=== PATIENT | female | born 1945 | race Caucasian/White ===

== ENCOUNTER 2016-07-02 10:19 | Day surgery (SDC) | payer MEDICARE, OTHER ==
[2016-07-02] VITALS (12 sets, daily range): BP systolic 93–164; BP diastolic 38–82; PULSE 53–78; RESP 11–16; O2SAT 92–98
[~2016-07-02] VITALS: Ht 170.2 cm; Wt 104.1 kg
[~2016-07-02 10:19] MED LIST: ACET-171 PO; CALC500T9 PO; CARV6.252 PO; CHOL100045 PO; CeFAZolin 2 Gm/50 mL D5W IV Premix IV ONE; DOCU250C2 PO; FRSM80T PO; IMMODIUM A-D PO; LISI-571 PO; ONDA4TAB6 PO; SEVE800T7 PO; VIT1TABL50 PO; WARF1TAB6 PO
[2016-07-02] MEDS ORDERED: Neostigmine 1 mg/mL 5 mL Inj ONE (10:20)
[2016-07-02] MEDS ORDERED: Propofol 10,000 mCg/mL 20 mL Inj ONE (10:20)
[2016-07-02] MEDS ORDERED: MetoCLOpramide 5 mg/mL 2 mL Inj ONE (10:20)
[2016-07-02] MEDS ORDERED: Ondansetron 2 mg/mL 2 mL Inj ONE (10:20)
[2016-07-02] MEDS ORDERED: Cisatracurium 2,000 mCg/mL 10 mL Inj ONE (10:20)
[2016-07-02] MEDS ORDERED: Glycopyrrolate 0.2 mg/mL 5 mL Inj ONE (10:20)
[2016-07-02] MEDS ORDERED: CeFAZolin 2 Gm/50 mL D5W Duplex Bag IV ONE (10:57)
[2016-07-02] MEDS: 0.9% Sodium Chloride 500 ML IV SCH ×2 (11:07→12:28)
[2016-07-02] MEDS ORDERED: Insulin LISPRO 300 Unit/3 mL Inj ONE (11:24)
[2016-07-02 11:35] LABS: INR 1.36 ratio
[2016-07-02] MEDS ORDERED: Lactated Ringer's 1,000 ML IV SCH (12:14)
[2016-07-02] MEDS ORDERED: Lactated Ringer's 500 ML IV PRN (12:14)
--- NOTE | 2016-07-02 12:14 | PCM.HPANE ---
Patient Data Surgeon Admitting Provider: Attending Provider:Javier Mccoy MD Primary Care Physician:Kemar Jo MD Other Provider:Galen Estrella Anesthesia Reason for Visit End Stage Renal Failure Ht/WT & BMI Height (Feet): 5 Height (Inches): 7 Weight (Kilograms): 104.1 Body Mass Index 36.00 Allergies Coded Allergies: liraglutide (Verified Allergy, Severe, RASH, 06/27/16) alendronate sodium (Verified Allergy, Unknown, UNKNOWN, 06/27/16) atenolol (Verified Allergy, Unknown, UNKNOWN, 06/27/16) fluoxetine (Verified Allergy, Unknown, UNKNOWN, 06/27/16) phentermine (Verified Allergy, Unknown, UNKNOWN, 06/27/16) topiramate (Verified Allergy, Unknown, UNKNOWN, 06/27/16) atorvastatin (Verified Adverse Reaction, Severe, MUSCLE CRAMPING, 06/27/16) Past Anesthesia History Anesthesia History: Denies:: Anesthesia Reactions, Fam Anesthesia Reaction, Fam Malignant Hypertherm, Malignant Hyperthermia Diabetes History Hx Diabetes?: Yes Type of Diabetes: Type II Glycemic Control: Diet Controlled Current Bedside Blood Glucose: 221 MRSA MRSA: Yes (PNEUMONIA) Medications Blood Thinner: Coumadin Hypertension Medication: Yes (LASIX,LISINOPRIL) Home Meds Incl Beta Tammy: Yes (CARVEDILOL) Date Beta Tammy Taken: Jul 02, 2016 Time Beta Tammy Taken: 0500 Reported Medications [Immodium A-D] No Conflict Check2-4 Mg PO PRN 06/27/16 Carvedilol 6.25 Mg Tablet3.125 Mg PO BID Ref 0 05/24/16 Acetaminophen 500 Mg Jylnol262 Mg PO Q6H PRN For Fever 05/24/16 Furosemide 80 Mg Tab80 Mg PO DAILY 30 Days Ref 0 05/24/16 Ondansetron (Zofran)4 Mg Tablet4 Mg PO TID PRN For Nausea 03/11/16 Cholecalciferol (Vitamin D3) (Vitamin D)1,000 Unit Capsule2,000 Unit PO DAILY # 1 BOTTLE Ref 0 03/11/16 Warfarin Sodium 1 Mg Tablet5 Mg PO DAILY PRN DIR 30 Days Ref 0 01/05/16 Docusate Sodium 250 Mg Tijffop536 Mg PO BID PRN For Constipation Ref 0 01/05/16 Lisinopril 5 Mg Tablet2.5 Mg PO DAILY #30 TABLET Ref 0 01/05/16 Sevelamer Carbonate (Renvela)800 Mg Tablet1,600 Mg PO TIDWM 90 Days 09/22/15 Discontinued Reported Medications Calcium Carbonate (Tums)500 Mg Tab.uhsa130 Mg PO PRN PRN For Dyspepsia or Heartburn 30 Days 03/11/16 Vit B Cmplx 3/FA/Vit C/Biotin (Nephro-Michael Rx)1 Each Tablet1 Tab PO DAILY 03/11/16 Insulin Lispro (HumaLOG U100 Insulin Pen)100 Unit/1 Ml Insuln.pen1 Unit SUBQ TIDAC #1 PENINJ Ref 0 Blood Sugar Lispro Correction <151 0 units 151-175 1 unit 176-200 2 units 201-225 3 units 226-250 4 units 251-275 5 units 276-300 6 units 301-325 7 units 326-350 8 units 351-375 9 units 376-400 10 units >400 12 units Check blood sugars before meals and at bedtime. Use correction factor only before meals. 06/27/16 Omeprazole 20 Mg Capsule.dr20 Mg PO DAILY Ref 0 05/27/16 Hydrocodone-Acetaminophen 5-325 mg 1 Each Tablet2 Tablet PO TID PRN For Pain Ref 0 03/12/16 Sennosides (Senna)8.6 Mg Tablet8.6 Mg PO PRN For Constipation 01/05/16 History History of ENT Problems?: Yes HEENT History: Denies:: Cataracts Dysphagia Sinus Problem Denture Type: Partial- Upper Teeth Condition: Missing Teeth Broken Teeth Hx of Heart Problems?: Yes Cardiovascular History: Positive for:: Atrial Fibrillation (HX OF PAF) Cardiac Surgery (HEART CATH 09/2015-WNL) Congestive Heart Failure Edema Hypertension (HYPERLIPIDEMIA) Irregular Heartbeat Valvular Heart Disease (MILD MR) Denies:: Chest Pain Heart Murmur (ECHO 12/2015 EF-50-55%, pulmonary htn resolved) Pacemaker Thrombophlebitis Hx of Respiratory Problem?: Yes Respiratory History: Positive for:: Dyspnea (AGGARWAL) Pneumonia (HX OF MRSA PNEUMONIA) Denies:: Asthma COPD Chest Surgery Emphysema Hemoptysis Tuberculosis Use of C-PAP Machine Hx Neurologic Problems?: Yes Neurological History: Positive for:: Headaches Seizures (Possibly one as a child) Denies:: Alzheimer's Disease (Family hx (aunts)) CVA Dementia Dizziness Parkinson's Disease Other Neurological Pertinent: HX CHRONIC PAIN SYNDROME Hx of GI Problems?: Yes Gastrointestinal History: Positive for:: Gall Bladder Disease (S/P JOEL) Gastroesphageal Reflux Heartburn Denies:: Diverticulitis Gastrointestinal Bleeding Hepatitis Hiatal Hernia Rectal Bleeding Other GI Pertinent History: INTENTIONAL WEIGHT LOSS OVER LAST 1 YR (AROUND 50# ) S/P VENTRAL HERNIA RPR X2 02/2016 Hx of Problems?: Yes Genitourinary History: Positive for:: HX of Hemodialysis (DIALYSIS TUES/THURS S/P A/V FISTULA) Denies:: Kidney Stones Urinary Tract Infection HX of Peritoneal Dialysis: No (DIALYSIS ACCESS=CURRENT PROBLEM) Female Hx: Denies:: Currently Endometriosis Pelvic Inflammatory Problems with Breasts? Skin History: Positive for:: Pressure Ulcers (HX OF COCCYX ULCER) Denies:: History Skin Disorders? Hx Musculoskeletal Problems?: Yes Musculoskeletal History: Positive for:: Back Injury (from a fall) Musculoskeletal Trauma (S/P RT LEG RPR AFTER FALL W/ FX) Denies:: Joint Replacement Hx of Psycho/Social Problems?: Yes Psycho Social History: Positive for:: Anxiety Hx Depression Denies:: Bipolar Disorder Suicide Attempt Hx Surgeries?: Yes (RT LEG RPR,JOEL,??PARATHYROID??,VENTRAL HERNIA RPR X2) Hx Any Other Health Problems?: Yes Other History: Positive for:: Hospitalization (PNEUMONIA/CHF) Thyroid Disease (hyper parathyroid) Denies:: Cancer Endocrine Disease (C/OF NIGHT SWEATS) History Blood Transfusions: Denies:: Blood Transfuse Reaction Blood Transfusions Hx Diabetes: YesBedside Blood Glucose: 221 Hx Alcohol Use: No (QUIT)Hx Substance Use: No Smoking Status: Former Smoker Have You Smoked inLast 12 mo: No Stop/Bang Treated for Sleep Apnea?: No Do You Have a CPAP Machine?: No S-Snoring: Do You Snore Loudly: No T-Tired: feel tired, fatigued: Yes O-Obsered: Observed not breath: No P-Blood Pressure: treated: Yes B- Body Mass Index > 35 kg/m2: Yes A- Age over 50: Yes N- Neck Large Circumference: Yes G- Gender Male: No AZUL Total Score: 5 AZUL Risk Assessment: High Risk, =/>3 Yes Risk Assessment Category Category 1A: Patient has history of documented sleep apnea, and HAS NOT received any narcotic, sedative or anesthesia administration during this stay. Category 1B: Patient has history of documented sleep apnea, and HAS received any narcotic , sedative or anesthesia administration during this stay Category 2: Patient has SUSPECTED Obstructive Sleep Apnea, and HAS received any narcotic , sedative or anesthesia administration during this stay. Category 3: Patient has SUSPECTED Obstructive Sleep Apnea and HAS NOT received narcotic, sedative or anesthesia administration during this stay. Category 4: Outpatient in Procedural Areas with known sleep apnea or who screen positive for High Risk via the STOP/BANG questionnaire. Exam Exam Vital Signs Vital Signs Date Time Temp Pulse Resp B/P Pulse Ox O2 Delivery O2 Flow Rate FiO2 07/02/16 11:32 36.3 78 16 164/82 95 Room Air General Appearance: Oriented X3 HEENT/AIRWAY: MP 3 Lungs: Normal Air Movement Heart: Regular Rate/Rhythm Meds/Labs/Diagnostics Admission Meds Current Medications Sodium Chloride (Normal Saline) 500 ml @ 10 mls/hr Q24H IV Last administered on 07/02/16 11:07; Start 07/02/16 at 05:00; Stop 07/04/16 at 06:59 Insulin Human Lispro (HumaLOG Insulin Inj) 300 unit STK-MED ONCE .ROUTE Last administered on 07/02/16 11:26; Start 07/02/16 at 11:24; Stop 07/02/16 at 11:26 ; Status DC Bedside Blood Glucose: 221 Labs Test 07/02/16 11:18 Prothrombin Time 14.6sec (8.1-12.5) Prothromb Time International Ratio 1.36ratio Potassium Level 3.6mEq/L (3.5-5.2) Plan Impression Patient chart reviewed, patient interviewed and anesthestic plan with risks, benefits, and alternatives discussed, and informed consent obtained. NPO Status: 1700 07/01 ASA Physical Status: ASA4 Life Threatening Anesthetic Plan: GA Bene/Risks/Altern/Consents: Yes HP Complete Prior to Induction: Yes Santana Frazier MD Jul 02, 2016 12:14
[2016-07-02] MEDS ORDERED: Ondansetron 2 mg/mL 2 mL Inj IVPUSH PRN (12:15)
[2016-07-02] MEDS ORDERED: Dexamethasone 4 mg/mL Inj IVPUSH PRN (12:15)
[2016-07-02] MEDS ORDERED: EPHEDrine Sulfate 50 mg/mL Inj IVPUSH PRN (12:15)
[2016-07-02] MEDS ORDERED: Phenylephrine 10,000 mCg/mL Inj IVPUSH PRN (12:15)
[2016-07-02] MEDS ORDERED: fentaNYL-PF 50 mCg/mL 2 mL Inj IVPUSH PRN (12:15)
[2016-07-02] MEDS ORDERED: MetoCLOpramide 5 mg/mL 2 mL Inj IVPUSH PRN (12:15)
[2016-07-02] MEDS ORDERED: Bupivacaine-MPF 0.5% 30 mL Inj INFILTRATE ONE (12:28)
[2016-07-02] MEDS ORDERED: HepLOK Flush 100 unit/mL 5 mL Inj IVFLUSH ONE (13:47)
[2016-07-02] MEDS ORDERED: HYDROcodone-APAP 5-325 mg Tablet PO PRN (13:55)
[2016-07-02] MEDS: HYDROmorphone 1 mg/mL Inj IVPUSH PRN ×2 (14:31→14:37)
[2016-07-02 14:39] LABS: APPEARANCE,URINE SLIGHTLY CLOUDY (CLEAR,HAZY); COLOR,URINE YELLOW (YELLOW); OCCULT BLOOD,URINE MODERATE (NEGATIVE); PH,URINE 5.5 (5.0-8.0)
--- NOTE | 2016-07-02 14:40 | OP ---
[address] [address] OPERATIVE REPORT PATIENT: CARLA GUTIERREZ : 1945 MR#: [id number] ADMIT: 07/02/2016 JOB ID: [id number] DATE OF SURGERY: 07/02/2016 PREOPERATIVE DIAGNOSIS(ES): 1. End-stage renal failure. 2. History of umbilical and epigastric hernias. POSTOPERATIVE DIAGNOSIS(ES): 1. Intra-abdominal adhesions. 2. End-stage renal failure. 3. History of umbilical and epigastric hernias. OPERATION: 1. Diagnostic laparoscopy. 2. Laparoscopic lysis of adhesions. 3. Laparoscopic placement of peritoneal dialysis catheter. SURGEON: Javier Gutierrez MD. [employer]: [facility] PA-C. INDICATIONS: The patient is a 71-year-old female who has end-stage renal failure. She lives on [address] [place]. Has requested a peritoneal dialysis catheter. Within the last year she had undergone open repair of umbilical and ventral hernias with mesh. She has never had any intra-abdominal operations. FINDINGS: She had omental adhesions to the mesh from her two hernia repairs. It required an energy source to divide them. After placement of the PD catheter, there was no resistance to inflow or outflow. DESCRIPTION OF PROCEDURE: At the beginning and end of the operation, a SCOAP checklist was completed. A general endotracheal anesthetic was induced. A Victor catheter was inserted and removed at the end of the operation. Using ChloraPrep, she was prepped and draped in usual fashion. She received preoperative antibiotics. Pneumoperitoneum was established by placing a Veress needle through a left subcostal incision. After insufflating about 4 L, an optical trocar was used to establish a 5 mm trocar at the same incision. An additional 5 mm port was placed in the left lower quadrant. She had omental adhesions to the mesh that was placed at her two hernias. I attempted to take it off first with gentle blunt dissection and then with scissors and cautery but the omentum was too adherent. It bled and so, I used a LigaSure device, and the omentum was divided off of the mesh. There was no evidence of recurrence of her hernias. I then significantly deflated the abdominal cavity and then I made garcia for placement of a right-sided curl cath for marking the location of the internal cuff, the right upper quadrant incision for placement of the catheter and the exit site in the right upper quadrant. Local anesthesia again was injected at the incision sites. The right upper quadrant incision was made transversely. Dissection was carried down to the anterior rectus fascia, which was incised, and an 8 mm port was placed into the abdominal cavity entering the abdominal cavity at the predetermined location of the internal cuff. The catheter was then positioned into the pelvis with the internal James cuff just outside the anterior peritoneum. The catheter was then tunneled to the predetermined right upper quadrant exit site. The right upper quadrant incision was closed with running subcuticular 4-0 Vicryl. The catheter was tested with infusion of normal saline. There was no resistance to inflow, and there was excellent outflow. The catheter was then flushed with heparinized saline and an occlusion device placed on it. The abdomen was then reinflated with CO2. There was a small amount of residual normal saline in the abdominal cavity, and this was aspirated with a suction device. The catheter was reinspected and again, the internal cuff was appropriately placed. The curl cath was in the pelvis. There was no bleeding from the omentum. The trocars were then removed after deflating the abdominal cavity. There was no evidence of bleeding. Skin incisions were closed with subcuticular 4-0 Vicryl. Sterile dressing was applied. The final sponge, needle and instrument counts were announced as correct. Estimated blood loss 10 cc. No apparent complications. The patient was returned to the recovery room in a stable condition. Critical Assistance provided by EDGARDO Davis. CODY
[2016-07-02 14:43] LABS: UROBILINOGEN,URINE NORMAL (NORMAL)
--- NOTE | 2016-07-02 14:51 | PCM.ANEP1 ---
Post Anesthesia Phase 1 PACU Phase 1 Assessment Vital Signs Vital Signs Date Time Temp Pulse Resp B/P Pulse Ox O2 Delivery O2 Flow Rate FiO2 07/02/16 14:40 36.3 55 11 103/42 94 Room Air 07/02/16 14:25 54 13 119/81 93 Room Air 07/02/16 14:20 54 11 117/38 92 Room Air 07/02/16 14:15 53 14 93/44 94 Simple Mask 8 07/02/16 14:10 54 15 95/40 95 Simple Mask 8 07/02/16 14:04 36.5 54 12 96/38 96 Simple Mask 8 07/02/16 11:32 36.3 78 16 164/82 95 Room Air Anesthetic Administered: GA Level of Alertness: Awake, talking Pain: No Nausea or Vomiting: No Lungs: Normal Air Movement Santana Frazier MD Jul 02, 2016 14:51
--- NOTE | 2016-07-02 14:51 | PCM.ANEP2 ---
Post Anesthesia Evaluation ASA/CMS Post Anesthesia VS in Patient's Normal Range?: Yes Resp Stable; Airway Patent?: Yes CV Function & Hydration Stable: Yes Mental Status Recovered?: Yes Pain control Satisfactory?: Yes N/V Control Satisfactory?: Yes Santana Frazier MD Jul 02, 2016 14:51
[2016-08-23] MEDS ORDERED: CALC500T9 PO (11:15)
[2016-08-23] MEDS ORDERED: FOLI0.8T2 PO (11:15)
[2016-08-23] MEDS ORDERED: INSU200I SQ (11:15)
[2016-08-26] MEDS ORDERED: FOLI0.8T21 PO (15:37)
[2016-08-26] MEDS ORDERED: PRAM0.122 PO (15:37)
[2016-08-26] MEDS ORDERED: OMEP20CA11 PO (15:37)
[2016-08-26] MEDS ORDERED: HYDR-4003 PO (15:37)
[2016-11-25] MEDS ORDERED: FURO80TA83 PO (16:02)
[2016-11-25] MEDS ORDERED: INSU100I18 SUBQ (16:02)
[2016-11-25] MEDS ORDERED: CHOL200047 PO (16:02)
[2016-11-25] MEDS ORDERED: ATOR20TA PO (16:06)
[2016-11-25] MEDS ORDERED: LOPE-147 PO (16:06)
[2016-11-25] MEDS ORDERED: CALC500T9 PO (16:06)
== END 2016-07-02 23:59 | disposition home or self-care (01) ==
LOC: SAS 10:19
PROVIDERS: ATTEND Surgery
DX: N18.6 End stage renal disease (principal); I97.191 Other postprocedural cardiac functional disturbances following other surgery; R00.1 Bradycardia, unspecified; I95.81 Postprocedural hypotension; I12.0 Hypertensive chronic kidney disease with stage 5 chronic kidney disease or end stage renal disease; I48.91 Unspecified atrial fibrillation; Z79.01 Long term (current) use of anticoagulants; E11.9 Type 2 diabetes mellitus without complications; Z86.14 Personal history of Methicillin resistant Staphylococcus aureus infection; Z99.2 Dependence on renal dialysis
CPT/HCPCS: 36415; 49324; 81000; 84132; 85610; 87086; 87088; J0690; J1170; J1642; J1815; J2270; J2405; J2710; J2765; J7040

== ENCOUNTER 2016-08-27 07:50 | Day surgery (SDC) | payer MEDICARE, OTHER ==
[~2016-08-27] VITALS: Ht 171.4 cm; Wt 101.9 kg
[2016-08-27] VITALS (8 sets, daily range): BP systolic 125–166; BP diastolic 48–60; PULSE 54–77; RESP 15–19; O2SAT 93–99
[~2016-08-27 07:50] MED LIST changes: -ACET-171 PO; -CALC500T9 PO; -CHOL100045 PO; +FOLI0.8T21 PO; +HYDR-4003 PO; -IMMODIUM A-D PO; +Lactated Ringer's 1,000 ML IV SCH; +OMEP20CA11 PO; +PRAM0.122 PO; -VIT1TABL50 PO
[2016-08-27] MEDS ORDERED: fentaNYL-PF 50 mCg/mL 2 mL Inj ONE (07:51)
[2016-08-27] MEDS ORDERED: Succinylcholine Chloride 20 mg/mL 5 mL Inj ONE (07:51)
[2016-08-27] MEDS ORDERED: EPHEDrine/NS 5 mg/mL 5 mL Syringe ONE (07:51)
[2016-08-27] MEDS ORDERED: Dexamethasone 4 mg/mL Inj ONE (07:51)
[2016-08-27] MEDS ORDERED: Ondansetron 2 mg/mL 2 mL Inj ONE (07:51)
[2016-08-27] MEDS ORDERED: Propofol 10,000 mCg/mL 20 mL Inj ONE (07:51)
[2016-08-27] MEDS ORDERED: CeFAZolin Inj 2 gm / 50mL D5W IV ONE (07:54)
[2016-08-27] MEDS ORDERED: 0.9% Sodium Chloride 500 ML IV ONE (08:34)
[2016-08-27] MEDS ORDERED: Insulin Human REGular-Omnicell 100 Unit/mL ONE (08:57)
[2016-08-27 09:16] LABS: INR 1.34 ratio
[2016-08-27] MEDS ORDERED: Insulin Human REGular-Omnicell 100 Unit/mL SUBQ ONE (09:29)
[2016-08-27] MEDS ORDERED: Lactated Ringer's 1,000 ML IV SCH (09:45)
[2016-08-27] MEDS ORDERED: fentaNYL-PF 50 mCg/mL 2 mL Inj IVPUSH PRN (09:45)
[2016-08-27] MEDS ORDERED: HYDROmorphone 1 mg/mL Inj IVPUSH PRN (09:45)
[2016-08-27] MEDS ORDERED: Lactated Ringer's 500 ML IV PRN (09:45)
[2016-08-27] MEDS ORDERED: Ondansetron 2 mg/mL 2 mL Inj IVPUSH PRN (09:45)
[2016-08-27] MEDS ORDERED: Dexamethasone 4 mg/mL Inj IVPUSH PRN (09:45)
[2016-08-27] MEDS ORDERED: Phenylephrine 10,000 mCg/mL Inj IVPUSH PRN (09:45)
[2016-08-27] MEDS ORDERED: MetoCLOpramide 5 mg/mL 2 mL Inj IVPUSH PRN (09:45)
[2016-08-27] MEDS ORDERED: hydrALAZINE 20 mg/mL Inj IVPUSH PRN (09:45)
[2016-08-27] MEDS ORDERED: Bupivacaine-MPF 0.5% 30 mL Inj INFILTRATE ONE (10:00)
[2016-08-27] MEDS ORDERED: HYDROcodone-APAP 5-325 mg Tablet PO PRN (10:35)
--- NOTE | 2016-08-27 15:01 | PCM.HPANE ---
Patient Data Date of Service: Aug 27, 2016 Surgeon Admitting Provider: Attending Provider:Javier Mccoy MD Primary Care Physician:Kemar Jo MD Other Provider: Reason for Visit Dysfunctional Pd Cath Ht/WT & BMI Height (Feet): 5 Height (Inches): 7.5 Weight (Kilograms): 101.9 Body Mass Index 34.00 Allergies Coded Allergies: liraglutide (Verified Allergy, Severe, RASH, 08/23/16) alendronate sodium (Verified Allergy, Unknown, UNKNOWN, 08/23/16) atenolol (Verified Allergy, Unknown, UNKNOWN, 08/23/16) fluoxetine (Verified Allergy, Unknown, UNKNOWN, 08/23/16) phentermine (Verified Allergy, Unknown, UNKNOWN, 08/23/16) topiramate (Verified Allergy, Unknown, UNKNOWN, 08/23/16) atorvastatin (Verified Adverse Reaction, Severe, MUSCLE CRAMPING, 08/23/16) Past Anesthesia History Anesthesia History: Denies:: Anesthesia Reactions, Fam Anesthesia Reaction, Fam Malignant Hypertherm, Malignant Hyperthermia Diabetes History Hx Diabetes?: Yes Type of Diabetes: Type II Glycemic Control: Diet Controlled Current Bedside Blood Glucose: 174 MRSA MRSA: Yes (PNEUMONIA) Medications Blood Thinner: Coumadin Last Dose Blood Thinner: Aug 22, 2016 Hypertension Medication: Yes (LOASIX,LISINOPRIL) Home Meds Incl Beta Tammy: Yes Date Beta Tammy Taken: Aug 27, 2016 Time Beta Tammy Taken: 0500 Reported Medications Folic Acid/Vitamin B Comp W-C (Full Spectrum B with Vit C Tab)0.8 Mg Tablet0.8 Mg PO QAM 08/26/16 Hydrocodone-Acetaminophen 5-325 mg 1 Each Tablet2 Tablet PO TID PRN For Pain Ref 0 08/26/16 Omeprazole 20 Mg Capsule.dr20 Mg PO DAILY Ref 0 08/26/16 Pramipexole Dihydrochloride (Mirapex)0.125 Mg Tablet0.125 Mg PO QAM 08/26/16 Carvedilol 6.25 Mg Tablet3.125 Mg PO BID Ref 0 05/24/16 Furosemide 80 Mg Tab40 Mg PO BID 30 Days Ref 0 IN AM & 1200 ON SUN,TUE,THUR & SAT 05/24/16 Ondansetron (Zofran)4 Mg Tablet4 Mg PO QID PRN For Nausea 03/11/16 Warfarin Sodium 1 Mg Tablet2.5 Mg PO DAILY PRN DIR 30 Days Ref 0 01/05/16 Docusate Sodium 250 Mg Eehrzeu764 Mg PO BID PRN For Constipation Ref 0 01/05/16 Lisinopril 5 Mg Tablet5 Mg PO DAILY #30 TABLET Ref 0 01/05/16 Sevelamer Carbonate (Renvela)800 Mg Ruwelo077 Mg PO BIDWM 90 Days 09/22/15 Discontinued Reported Medications Insulin Lispro (Humalog Kwikpen)200 Unit/Ml (3 Ml) Insuln.pen Sq 08/23/16 Calcium Carbonate (Tums)500 Mg Tab.hjvf408 Mg PO PRN PRN DIRECTED 30 Days 08/23/16 Folic Acid/Vitamin B Comp W-C (Nephro-Michael Tablet)0.8 Mg Tablet0.8 Mg PO DAILY 08/23/16 [Immodium A-D] No Conflict Check2-4 Mg PO PRN 06/27/16 Acetaminophen 500 Mg Epqscj678 Mg PO Q6H PRN For Fever 05/24/16 Cholecalciferol (Vitamin D3) (Vitamin D)1,000 Unit Capsule2,000 Unit PO DAILY # 1 BOTTLE Ref 0 03/11/16 History History of ENT Problems?: Yes HEENT History: Denies:: Cataracts Dysphagia Sinus Problem Denture Type: Partial- Upper Teeth Condition: Missing Teeth Broken Teeth Hx of Heart Problems?: Yes Cardiovascular History: Positive for:: Atrial Fibrillation (HX OF PAF) Cardiac Surgery (HEART CATH 09/2015-WNL) Congestive Heart Failure (ANASARCA -IMPROVED W/ 50# WEIGHT LOSS) Edema Hypertension (HYPERLIPIDEMIA) Irregular Heartbeat (A FIB/PAF) Valvular Heart Disease (MILD MR) Denies:: Chest Pain Heart Murmur (ECHO 12/2015 EF-50-55%, pulmonary htn resolved) Pacemaker Thrombophlebitis Hx of Respiratory Problem?: Yes Respiratory History: Positive for:: Dyspnea (AGGARWAL) Pneumonia (HX OF MRSA PNEUMONIA) Denies:: Asthma COPD Chest Surgery Emphysema Hemoptysis Tuberculosis Use of C-PAP Machine Hx Neurologic Problems?: Yes Neurological History: Positive for:: Headaches Seizures (Possibly one as a child) Denies:: Alzheimer's Disease (Family hx (aunts)) CVA Dementia Dizziness Parkinson's Disease Other Neurological Pertinent: HX CHRONIC PAIN Hx of GI Problems?: Yes Gastrointestinal History: Positive for:: Gall Bladder Disease (S/P JOEL) Gastroesphageal Reflux Heartburn Denies:: Diverticulitis Gastrointestinal Bleeding Hepatitis Hiatal Hernia Rectal Bleeding Other GI Pertinent History: S/P VENTRAL HERNIA RPR X2 C/OF CONSTIPATION & DIARRHEA Hx of Problems?: Yes Genitourinary History: Positive for:: HX of Hemodialysis (DIALYSIS M,W,F S /P A/V FISTULA) Denies:: Kidney Stones Urinary Tract Infection HX of Peritoneal Dialysis: No (S/P PLACEMENT 5-6 WEEKS AGO;NOW PLUGGED=CURRENT PROBLEM) Female Hx: Denies:: Currently Endometriosis Pelvic Inflammatory Problems with Breasts? Skin History: Positive for:: Pressure Ulcers (HX OF COCCYX ULCER) Denies:: History Skin Disorders? Hx Musculoskeletal Problems?: Yes Musculoskeletal History: Positive for:: Back Injury (from a fall) Musculoskeletal Trauma (S/P RT LEG RPR AFTER FALL W/ FX CURRENTLY HAS 2 FX SHOULDERS) Denies:: Joint Replacement Hx of Psycho/Social Problems?: Yes Psycho Social History: Positive for:: Anxiety Hx Depression Denies:: Bipolar Disorder Suicide Attempt Hx Surgeries?: Yes (RT LEG RPR,JOEL,??PARATHYROID??,VENTRAL HERNIA RPR X2) Hx Any Other Health Problems?: Yes Other History: Positive for:: Hospitalization (PNEUMONIA/CHF) Thyroid Disease (hyper parathyroid) Denies:: Cancer Endocrine Disease (C/OF NIGHT SWEATS) History Blood Transfusions: Denies:: Blood Transfuse Reaction Blood Transfusions Hx Diabetes: YesBedside Blood Glucose: 174 Hx Alcohol Use: No (QUIT)Hx Substance Use: No Smoking Status: Former Smoker Have You Smoked inLast 12 mo: NoApprox How Many Cigarettes/day: 1 PPD X 20YRS Stop/Bang Treated for Sleep Apnea?: No Do You Have a CPAP Machine?: No S-Snoring: Do You Snore Loudly: No T-Tired: feel tired, fatigued: Yes O-Obsered: Observed not breath: Yes P-Blood Pressure: treated: Yes B- Body Mass Index > 35 kg/m2: Yes A- Age over 50: Yes N- Neck Large Circumference: Yes G- Gender Male: No AZUL Total Score: 6 AZUL Risk Assessment: High Risk, =/>3 Yes AZUL Category 2: Yes Risk Assessment Category Category 1A: Patient has history of documented sleep apnea, and HAS NOT received any narcotic, sedative or anesthesia administration during this stay. Category 1B: Patient has history of documented sleep apnea, and HAS received any narcotic , sedative or anesthesia administration during this stay Category 2: Patient has SUSPECTED Obstructive Sleep Apnea, and HAS received any narcotic , sedative or anesthesia administration during this stay. Category 3: Patient has SUSPECTED Obstructive Sleep Apnea and HAS NOT received narcotic, sedative or anesthesia administration during this stay. Category 4: Outpatient in Procedural Areas with known sleep apnea or who screen positive for High Risk via the STOP/BANG questionnaire. Exam Exam Vital Signs Vital Signs Date Time Temp Pulse Resp B/P Pulse Ox O2 Delivery O2 Flow Rate FiO2 08/27/16 13:20 55 18 147/52 94 Room Air 08/27/16 11:05 58 19 136/51 95 Room Air 08/27/16 11:00 35.8 55 16 130/54 94 Room Air 08/27/16 10:55 60 15 139/54 93 Room Air 08/27/16 10:50 57 15 130/60 97 Room Air 08/27/16 10:46 57 16 125/48 96 Room Air 08/27/16 10:42 36.3 54 16 130/50 99 Simple Mask 8 08/27/16 08:35 35.7 77 18 166/60 95 Room Air General Appearance: Alert, Oriented X3, Cooperative, No Acute Distress HEENT/AIRWAY: MP 4 Lungs: Clear to Auscultation, Normal Air Movement Heart: Exam Unremarkable, Regular Rate/Rhythm, No Murmurs/Rubs/Gallops Meds/Labs/Diagnostics Admission Meds Current Medications Cefazolin Sodium/ Dextrose 2 gm/ Premix 50 ml @ 100 mls/hr PREOP ONCE IV Last administered on 08/27/16 09:48; Start 08/27/16 at 06:00; Stop 08/27/16 at 06:29; Status DC Sodium Chloride (Normal Saline) 500 ml @ ud STK-MED ONCE IV Last administered on 08/27/16 08:34; Start 08/27/16 at 08:34; Stop 08/27/16 at 08:35; Status DC Insulin Human Regular (HUMulin-R Insulin U-100 Inj) 2 unit STK-MED ONCE .ROUTE Last administered on 08/27/16 09:00; Start 08/27/16 at 08:57; Stop 08/27/16 at 08:58; Status DC Bupivacaine HCl (Sensorcaine-MPF 0.5% Inj) 30 ml STK-MED ONCE INFILTRATE Last administered on 08/27/16t 10:00; Start 08/27/16 at 10:00; Stop 08/27/16 at 10:14 ; Status DC Bedside Blood Glucose: 174 Labs Test 08/27/16 08:54 Prothrombin Time 14.4sec (8.1-12.5) Prothromb Time International Ratio 1.34ratio Potassium Level 4.0mEq/L (3.5-5.2) Plan Impression Patient chart reviewed, patient interviewed and anesthestic plan with risks, benefits, and alternatives discussed, and informed consent obtained. NPO Status: 1800 08/26/16 Rikki Ferraro MD Aug 27, 2016 15:01
--- NOTE | 2016-08-27 15:01 | PCM.ANEP1 ---
Post Anesthesia Phase 1 PACU Phase 1 Assessment Date of Service: Aug 27, 2016 Vital Signs Vital Signs Date Time Temp Pulse Resp B/P Pulse Ox O2 Delivery O2 Flow Rate FiO2 08/27/16 13:20 55 18 147/52 94 Room Air 08/27/16 11:05 58 19 136/51 95 Room Air 08/27/16 11:00 35.8 55 16 130/54 94 Room Air 08/27/16 10:55 60 15 139/54 93 Room Air 08/27/16 10:50 57 15 130/60 97 Room Air 08/27/16 10:46 57 16 125/48 96 Room Air 08/27/16 10:42 36.3 54 16 130/50 99 Simple Mask 8 08/27/16 08:35 35.7 77 18 166/60 95 Room Air Anesthetic Administered: GA Level of Alertness: Awake, talking LONG's with Equal Strength: Yes Pain: No Nausea or Vomiting: No Oxygen Delivery: Simple Mask Lungs: Clear to Auscultation, Normal Air Movement Rikki Ferraro MD Aug 27, 2016 15:01
--- NOTE | 2016-08-27 15:02 | PCM.ANEP2 ---
Post Anesthesia Evaluation ASA/CMS Post Anesthesia VS in Patient's Normal Range?: Yes Resp Stable; Airway Patent?: Yes CV Function & Hydration Stable: Yes Mental Status Recovered?: Yes Pain control Satisfactory?: Yes N/V Control Satisfactory?: Yes Rikki Ferraro MD Aug 27, 2016 15:01
--- NOTE | 2016-08-28 09:52 | OP ---
[address] [address] OPERATIVE REPORT PATIENT: CARLA GUTIERREZ : 1945 MR#: [id number] ADMIT: 08/27/2016 JOB ID: [id number] DATE OF SURGERY: 08/27/2016 PREOPERATIVE DIAGNOSIS(ES): Dysfunctional peritoneal dialysis catheter. POSTOPERATIVE DIAGNOSIS(ES): Dysfunctional peritoneal dialysis catheter. PROCEDURE: Removed dysfunctional peritoneal dialysis catheter. SURGEON: Javier Gutierrez MD ABSTRACT WRITER: Young Monk PA-C INDICATION: A 71-year-old female who has end-stage renal failure from diabetes. She is dialyzed through a fistula, but a peritoneal dialysis catheter was placed by me two months ago. It has become occluded. Simultaneous, she has developed an ulcer on the right toe. After discussing options with the patient, it was elected to proceed with removal of the catheter and not placement of a new one because of the obvious risk of a septic complication. FINDINGS: The catheter was aspirated. There was actually pus within the catheter, and I suspect that came from her toe. The catheter was removed intact. DESCRIPTION OF PROCEDURE: At the beginning and end of the operation, the SCOAP checklist was completed. An LMA anesthetic was induced. Using ChloraPrep, she was prepped and draped in usual fashion. Her incision was infiltrated with 0.5% plain bupivacaine. Using sterile saline, I attempted to irrigate the catheter, but as stated above, I aspirated back initially and I got out purulent-looking material. With that, there is no question I was going to remove the catheter and not replace it. The insertion site incision was then opened and the catheter was identified. Both cuffs were freed with blunt dissection. The intraperitoneal portion of the catheter was removed completely. The catheter was cut and both ends removed. The purulent material within the catheter was sent for culture. The wound was irrigated with saline. The skin was closed with widely deep dermal 4-0 Vicryl. The external site was left open. The estimated blood loss less than 10 cc. There is no apparent complications. The final sponge, needle, and instrument counts were announced as correct, and she was returned to the recovery room in stable condition. ADDITIONAL INFORMATION: Because of her diabetic toe ulcer, she will be seen by Dr. Eron Lacey in [place]. Critical assistance provided by Young Monk PA-C.
[2016-11-25] MEDS ORDERED: FURO80TA83 PO (16:02)
[2016-11-25] MEDS ORDERED: INSU100I18 SUBQ (16:02)
[2016-11-25] MEDS ORDERED: CHOL200047 PO (16:02)
[2016-11-25] MEDS ORDERED: LOPE-147 PO (16:06)
[2016-11-25] MEDS ORDERED: CALC500T9 PO (16:06)
[2016-11-25] MEDS ORDERED: ATOR20TA PO (16:06)
== END 2016-08-27 23:59 | disposition home or self-care (01) ==
LOC: SAS 07:50
PROVIDERS: ATTEND Surgery
DX: T85.611A Breakdown (mechanical) of intraperitoneal dialysis catheter, initial encounter (principal); E11.22 Type 2 diabetes mellitus with diabetic chronic kidney disease; I12.0 Hypertensive chronic kidney disease with stage 5 chronic kidney disease or end stage renal disease; N18.6 End stage renal disease; I48.91 Unspecified atrial fibrillation; I50.9 Heart failure, unspecified; R60.9 Edema, unspecified; R51 Headache; K21.9 Gastro-esophageal reflux disease without esophagitis; R11.2 Nausea with vomiting, unspecified; K59.00 Constipation, unspecified; R19.7 Diarrhea, unspecified; F41.9 Anxiety disorder, unspecified; F32.9 Major depressive disorder, single episode, unspecified; Z99.2 Dependence on renal dialysis; Y83.2 Surgical operation with anastomosis, bypass or graft as the cause of abnormal reaction of the patient, or of later complication, without mention of misadventure at the time of the procedure; Z79.01 Long term (current) use of anticoagulants; Z79.899 Other long term (current) drug therapy
CPT/HCPCS: 36415; 49325; 84132; 85610; 87070; 87075; 87205; J0330; J0690; J1100; J1815; J2405; J3010; J7030

== ENCOUNTER 2016-10-22 00:04 | Day surgery (SDC) | payer MEDICARE, OTHER ==
[~2016-10-22] VITALS: Ht 170.2 cm; Wt 106.8 kg
[2016-10-22] VITALS (14 sets, daily range): BP systolic 114–154; BP diastolic 53–87; PULSE 52–72; RESP 11–19; O2SAT 92–98
[~2016-10-22 00:04] MED LIST changes: -CeFAZolin 2 Gm/50 mL D5W IV Premix IV ONE; -Lactated Ringer's 1,000 ML IV SCH
[2016-10-22] MEDS ORDERED: Ondansetron 2 mg/mL 2 mL Inj ONE ×2 (00:05)
[2016-10-22] MEDS ORDERED: EPHEDrine/NS 5 mg/mL 5 mL Syringe ONE (00:05)
[2016-10-22] MEDS ORDERED: Lidocaine PF 1% 30 mL Inj ONE (00:05)
[2016-10-22] MEDS ORDERED: MetoCLOpramide 5 mg/mL 2 mL Inj ONE ×2 (00:05)
[2016-10-22] MEDS ORDERED: Propofol 10,000 mCg/mL 20 mL Inj ONE ×2 (00:05)
[2016-10-22] MEDS ORDERED: fentaNYL-PF 50 mCg/mL 2 mL Inj ONE ×2 (00:05→09:41)
[2016-10-22] MEDS ORDERED: 0.9% Sodium Chloride 500 ML IV SCH (05:00)
[2016-10-22] MEDS ORDERED: CeFAZolin 2 Gm/50 mL D5W IV Premix IV ONE (06:00)
[2016-10-22 07:31] LABS: BASOPHILS % (AUTO) 0.4 % (0-3); EOSINOPHILS % (AUTO) 0.8 % (0-5); MONOCYTES % (AUTO) 11.6 % (4-12); Mean Corpuscular Hemoglobin 31.2 pg (27.0-35.0); Mean Corpuscular Volume 97.9 fL (81-100); NEUTROPHILS % (AUTO) 71.5 % (40-74); Platelet Count 115 bil/L (150-400)
[2016-10-22 07:45] LABS: INR 1.18 ratio
[2016-10-22] MEDS ORDERED: GABA-500 PO (08:12)
[2016-10-22] MEDS ORDERED: CeFAZolin Inj 2 GM in IV Premix 1 EACH IV SCH (08:36)
[2016-10-22] MEDS ORDERED: HYDROmorphone 1 mg/mL Inj IVPUSH PRN ×2 (08:40→10:55)
[2016-10-22] MEDS ORDERED: Heparin 5,000 Units/500 mL NS Premix IV ONE (08:55)
[2016-10-22] MEDS ORDERED: Heparin 1,000 Unit/mL 10 mL Inj ONE (08:55)
[2016-10-22] MEDS ORDERED: Lactated Ringer's 1,000 ML IV SCH (10:53)
[2016-10-22] MEDS ORDERED: Lactated Ringer's 500 ML IV PRN (10:53)
--- NOTE | 2016-10-22 10:53 | PCM.HPANE ---
Patient Data Date of Service: October 22, 2016 (1041) Surgeon Admitting Provider: Attending Provider:Javier Mccoy MD Primary Care Physician:Kemar Jo MD Other Provider:Galen Estrella Anesthesia Reason for Visit Aneurysm Of A/V Fistula/Cath Placement/Esrd Ht/WT & BMI Height (Feet): 5 Height (Inches): 7.00 Weight (Kilograms): 106.800 Body Mass Index 36.96 Allergies Coded Allergies: liraglutide (Verified Allergy, Severe, RASH, 08/23/16) alendronate sodium (Verified Allergy, Unknown, UNKNOWN, 08/23/16) atenolol (Verified Allergy, Unknown, UNKNOWN, 08/23/16) fluoxetine (Verified Allergy, Unknown, UNKNOWN, 08/23/16) phentermine (Verified Allergy, Unknown, UNKNOWN, 08/23/16) topiramate (Verified Allergy, Unknown, UNKNOWN, 08/23/16) atorvastatin (Verified Adverse Reaction, Severe, MUSCLE CRAMPING, 08/23/16) Past Anesthesia History Anesthesia History: Denies:: Anesthesia Reactions, Fam Anesthesia Reaction, Fam Malignant Hypertherm, Malignant Hyperthermia Diabetes History Hx Diabetes?: Yes Type of Diabetes: Type II Glycemic Control: Diet Controlled Current Bedside Blood Glucose: 251 MRSA MRSA: Yes (hx of MRSA pneumonia) Medications Blood Thinner: Coumadin Hypertension Medication: Yes Home Meds Incl Beta Tammy: Yes Reported Medications Gabapentin 100 Mg [id number] Mg PO HS PRN For Sleep 30 Days Ref 0 10/22/16 Folic Acid/Vitamin B Comp W-C (Full Spectrum B with Vit C Tab)0.8 Mg Tablet0.8 Mg PO QAM 08/26/16 Hydrocodone-Acetaminophen 5-325 mg 1 Each Tablet2 Tablet PO TID PRN For Pain Ref 0 08/26/16 Omeprazole 20 Mg Capsule.dr20 Mg PO DAILY Ref 0 08/26/16 Carvedilol 6.25 Mg Tablet3.125 Mg PO BID Ref 0 05/24/16 Furosemide 80 Mg Tab40 Mg PO BID 30 Days Ref 0 IN AM & 1200 ON SUN,TUE,THUR & SAT 05/24/16 Ondansetron (Zofran)4 Mg Tablet4 Mg PO QID PRN For Nausea 03/11/16 Warfarin Sodium 1 Mg Tablet2.5 Mg PO DAILY PRN DIR 30 Days Ref 0 01/05/16 Docusate Sodium 250 Mg [id number] Mg PO BID PRN For Constipation Ref 0 01/05/16 Lisinopril 5 Mg Tablet5 Mg PO DAILY #30 TABLET Ref 0 01/05/16 Sevelamer Carbonate (Renvela)800 Mg [id number] Mg PO BIDWM 90 Days 09/22/15 Discontinued Reported Medications Pramipexole Dihydrochloride (Mirapex)0.125 Mg Tablet0.125 Mg PO QAM 08/26/16 History History of ENT Problems?: No HEENT History: Denies:: Cataracts Dysphagia Glaucoma Sinus Problem Denture Type: None Teeth Condition: Broken Teeth Tooth Decay Missing Teeth Hx of Heart Problems?: Yes Cardiovascular History: Positive for:: Atrial Fibrillation (hx of PAF) Cardiac Surgery (hx of dx cath - wnl) Congestive Heart Failure (hx of ) Edema Hypertension Irregular Heartbeat (A FIB/PAF) Valvular Heart Disease (echo 12/2015- ef 50-55%) Denies:: Chest Pain Heart Murmur Pacemaker Peripheral Vascular Thrombophlebitis Hx of Respiratory Problem?: Yes Respiratory History: Positive for:: Dyspnea (AGGARWAL) Pneumonia (HX OF MRSA PNEUMONIA) Denies:: Asthma COPD Chest Surgery Emphysema Hemoptysis Oxygen Administration Tuberculosis Use of C-PAP Machine Hx Neurologic Problems?: Yes Neurological History: Positive for:: Headaches Denies:: Alzheimer's Disease CVA Dementia Dizziness Parkinson's Disease Seizures Hx of GI Problems?: Yes Gastrointestinal History: Positive for:: Gastroesphageal Reflux (occasional) Hx of Problems?: Yes Genitourinary History: Positive for:: HX of Hemodialysis (dialysis anacortes Fri/fri/fri) Denies:: Kidney Stones Urinary Tract Infection HX of Peritoneal Dialysis: No (hx of PD cath, removed) Other Pertinent History: 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 Skin History: Positive for:: Pressure Ulcers (pt has open wounds on feet- surgeon aware) Denies:: History Skin Disorders? Hx Musculoskeletal Problems?: Yes Musculoskeletal History: Positive for:: Back Injury (from a fall) Musculoskeletal Trauma Denies:: Joint Replacement Hx of Psycho/Social Problems?: Yes Psycho Social History: Positive for:: Anxiety Hx Depression Denies:: Bipolar Disorder Suicide Attempt Hx Surgeries?: Yes (RT LEG RPR,JOEL,PARATHYROID??,VENTRAL HERNIA RPR X2) Hx Any Other Health Problems?: Yes Other History: Positive for:: Hospitalization (PNEUMONIA/CHF, mult fractures GLF) Denies:: Cancer Endocrine Disease Thyroid Disease History Blood Transfusions: Positive for:: Accept Blood Products? Denies:: Blood Transfuse Reaction Blood Transfusions Hx Diabetes: YesBedside Blood Glucose: 251 Hx Alcohol Use: NoHx Substance Use: No Smoking Status: Former Smoker Have You Smoked inLast 12 mo: No Stop/Bang Treated for Sleep Apnea?: No Do You Have a CPAP Machine?: No S-Snoring: Do You Snore Loudly: No T-Tired: feel tired, fatigued: Yes O-Obsered: Observed not breath: No P-Blood Pressure: treated: Yes B- Body Mass Index > 35 kg/m2: Yes A- Age over 50: Yes N- Neck Large Circumference: No G- Gender Male: No AZUL Total Score: 4 AZUL Risk Assessment: High Risk, =/>3 Yes AZUL Category 2: Yes Risk Assessment Category Category 1A: Patient has history of documented sleep apnea, and HAS NOT received any narcotic, sedative or anesthesia administration during this stay. Category 1B: Patient has history of documented sleep apnea, and HAS received any narcotic , sedative or anesthesia administration during this stay Category 2: Patient has SUSPECTED Obstructive Sleep Apnea, and HAS received any narcotic , sedative or anesthesia administration during this stay. Category 3: Patient has SUSPECTED Obstructive Sleep Apnea and HAS NOT received narcotic, sedative or anesthesia administration during this stay. Category 4: Outpatient in Procedural Areas with known sleep apnea or who screen positive for High Risk via the STOP/BANG questionnaire. Exam Exam Vital Signs Vital Signs Date Time Temp Pulse Resp B/P Pulse Ox O2 Delivery O2 Flow Rate FiO2 10/22/16 10:25 36.6 71 16 154/65 96 Room Air 10/22/16 07:13 72 18 142/87 95 Room Air General Appearance: Alert, Oriented X3, Cooperative, No Acute Distress HEENT/AIRWAY: MP 3, Neck Movement (FROM), Mouth Opening (<3), Other (tmd<3, SHORT THICK NECK) Lungs: Diminished Heart: Exam Unremarkable, Regular Rate/Rhythm, Normal S1, Normal S2, No Murmurs /Rubs/Gallops Meds/Labs/Diagnostics Admission Meds Current Medications Sodium Chloride (Normal Saline) 500 ml @ 10 mls/hr Q24H IV Last administered on 10/22/16t 08:40; Start 10/22/16 at 05:00; Stop 10/24/16 at 06:59 Bedside Blood Glucose: 251 Labs Test 10/22/16 06:53 10/22/16 07:22 White Blood Count 4.9th/mm3 (3.8-10.1) Red Blood Count 3.78mil/mm3 (3.90-5.20) Hemoglobin 11.8g/dL (12.0-15.6) Hematocrit 37.0% (35.0-46.0) Mean Corpuscular Volume 97.9fL (81-100) Mean Corpuscular Hemoglobin 31.2pg (27.0-35.0) Mean Corpuscular Hemoglobin Concent 31.9% (32.0-37.0) Red Cell Distribution Width 16.1% (12.3-15.4) Platelet Count 115bil/L (150-400) Neutrophils (%) (Auto) 71.5% (40-74) Lymphocytes (%) (Auto) 15.5% (14-46) Monocytes (%) (Auto) 11.6% (4-12) Eosinophils (%) (Auto) 0.8% (0-5) Basophils (%) (Auto) 0.4% (0-3) Prothrombin Time 12.7sec (8.1-12.5) Prothromb Time International Ratio 1.18ratio Sodium Level 139mEq/L (134-144) Potassium Level 4.3mEq/L (3.5-5.2) Chloride Level 98mEq/L (97-108) Carbon Dioxide Level 26mmol/L (18-29) Blood Urea Nitrogen 38mg/dL (8-27) Creatinine 4.74mg/dL (0.57-1.00) Estimat Glomerular Filtration Rate 13mL/min (>59) Glucose Level 291mg/dL (60-99) Calcium Level 10.0mg/dL (8.5-10.1) Plan Impression Patient chart reviewed, patient interviewed and anesthestic plan with risks, benefits, and alternatives discussed, and informed consent obtained. ASA Physical Status: ASA3 Severe Disease Anesthetic Plan: GA Bene/Risks/Altern/Consents: Yes HP Complete Prior to Induction: Yes Bebeto Childress MD October 22, 2016 10:53
[2016-10-22] MEDS ORDERED: Phenylephrine 10,000 mCg/mL Inj IVPUSH PRN (10:55)
[2016-10-22] MEDS ORDERED: Dexamethasone 4 mg/mL Inj IVPUSH PRN (10:55)
[2016-10-22] MEDS ORDERED: 0.9% Sodium Chloride 1,000 ML IV ONE (10:55)
[2016-10-22] MEDS ORDERED: MetoCLOpramide 5 mg/mL 2 mL Inj IVPUSH PRN ×2 (10:55→14:40)
[2016-10-22] MEDS ORDERED: Ondansetron 2 mg/mL 2 mL Inj IVPUSH PRN ×2 (10:55→14:40)
[2016-10-22] MEDS ORDERED: EPHEDrine Sulfate 50 mg/mL Inj IVPUSH PRN (10:55)
[2016-10-22] MEDS ORDERED: Bupivacaine-MPF 0.5% 30 mL Inj INFILTRATE ONE (11:30)
--- NOTE | 2016-10-22 11:41 | DRSVH ---
PROCEDURE: CV TUNNEL CATH PLCMNT 1. Sonographic guidance for venous access. 2. Conscious sedation for 30 minutes. 3. Right internal jugular vein tunneled hemodialysis catheter placement. 4. Fluoroscopic guidance for catheter placement. INDICATIONS: ESRD TECHNIQUE: The indications, alternatives, benefits, risks, and complications of the procedure were e xplained to the patient and any family members present. Informed written consent was obtained and pl aced in the chart. The patient was brought to the angiography suite, and conscious sedation was admi nistered intravenously by custodial staff, while continuous cardiorespiratory monitoring was pe rformed. Maximum sterile barrier technique was employed per standard protocol, including hand hygiene, cap, ma sk, sterile gown and gloves, and 2% chlorhexidine. Sterile ultrasound probe cover was also utilized. 1% lidocaine was used for local anaesthesia. Under sonographic guidance, the right internal jugular vein was accessed with a Micropuncture set. An 0.035J wire was advanced into the vena cava. Subcuta neous tunnel was created within the right anterior chest wall, through which a 14.5 Ukrainian double lum en tunneled hemodialysis catheter was advanced. Following sequential venotomy tract dilation, the ca theter was advanced through the peel-away sheath and the tip was placed at the cavoatrial junction. Peel-away sheath was removed. Adequate flow was obtained through both lumens of the catheter. The v enotomy was closed with Dermabond, and the catheter was fastened to the skin with Ticron. Both lumen s were flushed with heparinized saline. The patient tolerated the procedure without difficulty and was in stable condition at the conclusion of the procedure. COMPARISON: [facility], , CV TUNNEL CATH PLCMNT, 06/15/2015, 13:56. FINDINGS: The right internal jugular vein is patent by ultrasound. Fluoroscopic imaging demonstrates tip of th e catheter at the cavoatrial junction. IMPRESSION: Right internal jugular vein tunneled hemodialysis catheter placement using sonographic and fluoroscop ic guidance. Dictated by: Svetlana Walker M.D. on 10/22/2016 at 11:39 Approved by: Svetlana Walker M.D. on 10/22/2016 at 11:40
[2016-10-22] MEDS ORDERED: HYDROcodone-APAP 5-325 mg Tablet PO PRN (14:40)
[2016-10-22] MEDS: fentaNYL-PF 50 mCg/mL 2 mL Inj IVPUSH PRN ×3 (15:12→15:41)
--- NOTE | 2016-10-22 15:25 | OP ---
[address] [address] OPERATIVE REPORT PATIENT: CARLA GUTIERREZ : 1945 MR#: [id number] ADMIT: 10/22/2016 JOB ID: [id number] DATE OF SURGERY: 10/22/2016 PREOPERATIVE DIAGNOSIS(ES): Large aneurysm right brachiocephalic dialysis fistula. POSTOPERATIVE DIAGNOSIS(ES): Large aneurysm right brachiocephalic dialysis fistula. PROCEDURE: Repair large aneurysm right brachiocephalic dialysis fistula-22. SURGEON: Javier Gutierrez M.D. RADIOLOGIC TECH: Lakeisha Alvarez M.D. INDICATIONS: The patient is a 71-year-old female, who is dialyzed through a right brachiocephalic AV fistula. She has developed a large aneurysm in the distal upper arm. After discussing options with the patient, it was elected to proceed with repair. Prior to fixing the aneurysm, she had a tunneled catheter placed in Interventional Radiology by Dr. Svetlana Walker. FINDINGS: The aneurysm was very large. It was fusiform. It started just beyond the anastomosis with the brachial artery. It extended about 12 cm up the arm, was at least 5 cm in diameter. At the conclusion of the repair, she had a palpable thrill in the fistula and a palpable right radial pulse. DESCRIPTION OF PROCEDURE: At the beginning and end of the operation, the SCOAP checklist was completed. An LMA anesthetic was induced by Dr. Bebeto Childress. Using ChloraPrep, her right upper extremity was prepped and draped in the usual fashion. The old antecubital incision was marked as well as the fistula in the mid portion of her upper arm which was, at that point, palpably normal. The medial portion of her previous incision was then infiltrated with local anesthesia. It was opened and with sharp dissection the origin of the fistula at the artery was identified with sharp dissection and controlled with a vessel loop. I then made an incision over the normal-sized fistula above the aneurysm and with sharp dissection the fistula was dissected free and then also controlled with a vessel loop. I then designed an incision connecting the proximal and distal incision and again infiltrated it with 0.5% bupivacaine. After incising the skin, the subcutaneous tissue was divided with cautery down to the fistula. Using a combination of sharp dissection, blunt dissection and cautery, the fistula was freed from medially and laterally, and large branches were ligated with 3-0 silk suture ligature and small branches with either cautery or clips. The fistula was occluded just beyond the arteriovenous fistula and also distally. The aneurysm was opened. There was no collateral filling of the aneurysm. I flushed the fistula proximally with heparinized saline. I used a 24-Lao red rubber catheter as a gauge for the repair of the fistula, excised redundant anterior and lateral wall. The aneurysm was then repaired with running 6-0 Prolene. Prior to completing the anastomosis, I flushed the aneurysm with heparinized saline and also forward flushed by releasing the arterial end clamp. After completing closure of the running suture line, I had to place several interrupted 6-0 Prolene sutures to ensure hemostasis. After placing those, there was an excellent thrill in the graft. There was no evidence of bleeding from the suture line. I did the excision of the anterior and medial wall, allowed placement of the suture line on the medial side of the fistula. The suture line was covered with FloSeal. The wound was then closed with multiple interrupted subcutaneous and deep dermal 3-0 Vicryl sutures and running subcuticular 4-0 Vicryl and Dermabond. The estimated blood loss was 50 cc. There were no apparent complications. The final sponge, needle and instrument counts were announced as correct and the patient was returned to recovery room in stable condition. Critical assistance was provided by Lakeisha Alvarez M.D.
[2016-10-22] MEDS ORDERED: HYDROmorphone 0.5 mg/0.5 mL iSecure Syringe ONE (15:30)
--- NOTE | 2016-10-23 08:12 | PCM.ANEP1 ---
Post Anesthesia Phase 1 PACU Phase 1 Assessment Date of Service: October 22, 2016 (104) Anesthetic Administered: GA Level of Alertness: Awake, talking LONG's with Equal Strength: Yes Pain: No (chronic pain, daily w/pain pills 5/10) Pain Scale Score: 0 Nausea or Vomiting: No Cardiovascular Function and Hy: Yes Oxygen Delivery: Simple Mask Lungs: Diminished Complications: No Bebeto Childress MD October 23, 2016 08:12
[2016-11-25] MEDS ORDERED: CHOL200047 PO (16:02)
[2016-11-25] MEDS ORDERED: INSU100I18 SUBQ (16:02)
[2016-11-25] MEDS ORDERED: FURO80TA83 PO (16:02)
[2016-11-25] MEDS ORDERED: LOPE-147 PO (16:06)
[2016-11-25] MEDS ORDERED: CALC500T9 PO (16:06)
[2016-11-25] MEDS ORDERED: ATOR20TA PO (16:06)
== END 2016-10-22 23:59 | disposition home or self-care (01) ==
LOC: SAS 00:04 → SOUO 23:59
PROVIDERS: ATTEND Radiology Vascular & Interventional Radiology
DX: T82.898A Other specified complication of vascular prosthetic devices, implants and grafts, initial encounter (principal); I72.8 Aneurysm of other specified arteries; Y83.2 Surgical operation with anastomosis, bypass or graft as the cause of abnormal reaction of the patient, or of later complication, without mention of misadventure at the time of the procedure; Z79.01 Long term (current) use of anticoagulants; I48.91 Unspecified atrial fibrillation; E11.22 Type 2 diabetes mellitus with diabetic chronic kidney disease; I12.0 Hypertensive chronic kidney disease with stage 5 chronic kidney disease or end stage renal disease; E21.3 Hyperparathyroidism, unspecified; I27.2 Other secondary pulmonary hypertension; Z87.891 Personal history of nicotine dependence; E66.01 Morbid (severe) obesity due to excess calories; Z68.35 Body mass index [BMI] 35.0-35.9, adult; Z86.14 Personal history of Methicillin resistant Staphylococcus aureus infection
CPT/HCPCS: 36415; 36558; 36832; 76937; 77001; 80048; 85025; 85610; 99152; 99153; C1750; C1769; C1887; J0171; J0690; J1170; J1644; J2250; J2405; J2765; J3010; J7030; J7040

== ENCOUNTER 2016-11-26 00:54 | Day surgery (SDC) | payer MEDICARE, OTHER ==
[~2016-11-26 00:54] MED LIST changes: +ATOR20TA PO; +CALC500T9 PO; +CHOL200047 PO; -FRSM80T PO; +FURO80TA83 PO; -HYDR-4003 PO; +INSU100I18 SUBQ; +LOPE-147 PO; -OMEP20CA11 PO; -PRAM0.122 PO
[2016-11-26 11:38] VITALS: BP 134/59; PULSE 60; RESP 16; O2SAT 98
[2016-11-26 11:46] LABS: BASOPHILS % (AUTO) 0.7 % (0-3); MONOCYTES % (AUTO) 12.2 % (4-12); Mean Corpuscular Hemoglobin 32.1 pg (27.0-35.0); Mean Corpuscular Volume 98.5 fL (81-100); NEUTROPHILS % (AUTO) 63.2 % (40-74); Platelet Count 94 bil/L (150-400)
[2016-11-26 11:50] LABS: INR 1.18 ratio
--- NOTE | 2016-11-26 12:25 | NUR ---
Angiogram cancelled by Dr. Frederick. Pt had LLE ultrasound and is awaiting her ride home.
--- NOTE | 2016-11-26 15:15 | DRSVH ---
PROCEDURE: US VENOUS REFLUX DUPLEX UNILTAERAL, LEFT INDICATIONS: REFLUX TECHNIQUE: Real time scanning was performed of the lower extremity venous system, with imaging docum entation, as well as Color and pulse Doppler interrogation. COMPARISON: None. FINDINGS: LEFT LOWER EXTREMITY: The deep veins are normally compressible, and free of intraluminal thrombus. Color and pulse Doppler demonstrate normal intravascular flow. There is normal augmentation with dis alfredo compression maneuver. Greater saphenous vein (GSV): Reflux present with duration of reflux extending beyond 0.5 seconds. S ee technical diagram for specific measurements and course of the greater saphenous vein. Anterior accessory GSV (AAGSV): No reflux. Small saphenous vein (SSV): Reflux present with duration of reflux extending beyond 0.5 seconds. IMPRESSION: Reflux present within the greater and shorter saphenous veins on the left. Dictated by: Carlos Alberto GALVEZ Interpreted: Stephen Graham MD on 11/26/2016 at 13:07 Approved by: Stephen Graham M.D. on 11/26/2016 at 15:13
== END 2016-11-26 23:59 | disposition home or self-care (01) ==
LOC: SOUO 00:54
PROVIDERS: ATTEND Radiology Diagnostic Radiology
DX: I73.9 Peripheral vascular disease, unspecified (principal); Z53.09 Procedure and treatment not carried out because of other contraindication; I87.8 Other specified disorders of veins; R60.0 Localized edema

== ENCOUNTER → 2017-01-07 | Day surgery (SDC) | payer MEDICARE, OTHER ==
[2017-01-07] VITALS (12 sets, daily range): BP systolic 123–149; BP diastolic 39–67; PULSE 75–95; RESP 16; O2SAT 92–100
[~2017-01-07] VITALS: Ht 171.4 cm; Wt 104.5 kg
[~2017-01-07] MED LIST changes: -CALC500T9 PO; +CARV3.122 PO; -CHOL200047 PO; +DOCU-41 PO; -DOCU250C2 PO; -FOLI0.8T21 PO; +FRSM80T PO; +GABA-500 PO; +HYDR-4003 PO; +Heparin 10,000 Unit/1,000 mL NS Premix IV ONE; +LISI2.5T PO; -LOPE-147 PO; +OMEP20CA11 PO; +ONDA-53 PO; -ONDA4TAB6 PO; +SERT100T9 PO; +VIT1TABL50 PO; -WARF1TAB6 PO; +WARF2TAB PO; +WARF5TAB7 PO
--- NOTE | 2017-01-07 10:40 | NUR ---
Admit [facility] Admitted to [facility] about 1000. VSS. States pain at normal level af 8/10 and took pain pills this morning. IV started. Dr. Frederick states no labs needed. Pt. states has been off warfarin for 5 days. IV started per VERA Abel. Procedure and recovery reviewed and verbalizes understanding. Awaiting construction or leak gang laborer.
--- NOTE | 2017-01-07 14:03 | NUR ---
PT CALLED STATING THAT HER DRESSING WAS SATURATED. PATIENT BLEEDING FROM CATHETER SITE, MANUAL COMPRESSION APPLIED IMMEDIATELY. FLAT LOCK MACHINE OPERATOR PERSONNEL, LINH CALLED TO BEDSIDE TO CONTINUE TO HOLD PRESSURE.
--- NOTE | 2017-01-07 15:31 | DRSVH ---
PROCEDURE: 1. Removal of right internal jugular vein tunneled hemodialysis catheter. 2. Conscious sedation x 13 minutes. INDICATIONS: End-stage renal disease. No longer needs dialysis access. COMPARISON: None. Technique:Periprocedural antibiotics were administered when necessary. Informed, written consent fro m the patient was obtained prior to the procedure. Patient was brought to the angiography suite, and conscious sedation was administered intravenously by [facility] staff, while continuous cardiore spiratory monitoring was performed. The right internal jugular vein tunneled hemodialysis catheter an d surrounding skin were prepped and draped sterilely, and the surrounding skin was infused with lidoc julio. A scalpel and blunt dissection were used to liberate the cuff. Traction was applied and the cat heter was removed. Pressure was applied for hemostasis. Fluoroscopy time: 0 IMPRESSION: Right internal jugular vein tunneled hemodialysis catheter Removal. Dictated by: Minna Frederick M.D. on 01/07/2017 at 15:29 Approved by: Minna Frederick M.D. on 01/07/2017 at 15:29
--- NOTE | 2017-01-07 16:39 | NUR ---
Recovery/discharge worm farm laborer held pressure for 20 minutes and applied new gauze dressing. Dr. Frederick notified and stated to keep pt. another 2 hours. VSS t/o. No further bleeding. Tolerated po well. Assisted to side of bed and assisted to dress. No further bleeding. IV discontinued intact. Discharge instructions given, see sheet. Verbalizes understanding. Assisted to w/c and out to car with all belongings in no distress at 1615. Brother driving.
== END | disposition home or self-care (01) ==
LOC: SOUO 00:25
PROVIDERS: ATTEND Radiology Diagnostic Radiology
DX: Z49.01 Encounter for fitting and adjustment of extracorporeal dialysis catheter (principal); N18.6 End stage renal disease
CPT/HCPCS: 36589; J1644

== ENCOUNTER 2017-02-03 09:08 | Inpatient (IN) | payer MEDICARE, OTHER ==
[~2017-02-03] VITALS: Ht 170.2 cm; Wt 109.0 kg
[2017-02-03] VITALS (7 sets, daily range): BP systolic 106–146; BP diastolic 25–81; PULSE 71–79; RESP 18–20; O2SAT 89–99
[~2017-02-03 09:08] MED LIST changes: -ATOR20TA PO; -CARV6.252 PO; -Heparin 10,000 Unit/1,000 mL NS Premix IV ONE; -INSU100I18 SUBQ; -LISI2.5T PO; -SERT100T9 PO; -WARF2TAB PO
--- NOTE | 2017-02-03 09:09 | ED.REPORT ---
HPI-Abd Pain F 40 and Over Date of Service Feb 03, 2017 ED Provider: Nguyễn Isaac DO The pt is a 71 y/o female with a hx of A-fib (on Coumadin), HTN, DM, and ESRD who presents to the ED via EMS from [facility] in [place] complaining of waxing and waning right flank pain, onset 2 days ago that significantly worsened today. No specific factors or movement exacerbate or relieve her pain. Her BP en route was 190/104. Associated sx include nausea, dry heaving, ans mild abdominal pain. She also complains of hematuria for the last 2 months. She has discussed this with her PCP who is not concerned about it. The pt does make urine. She has been urinating more frequently recently but does not produce very much. She denies dysuria, vomiting, recent fall or trauma to the back and any other sx at this time. Nursing Notes Stated Complaint: RIGHT FLANK PAIN Nursing Notes Reviewed: Yes Allergies: Coded Allergies: liraglutide (Verified Allergy, Severe, RASH, 01/07/17) pramipexole (Unverified Allergy, Severe, BROWN DEEP ULCERS ON LEGS AND FEET, 01/07/17) PATIENT STATES THIS IS A NEW ALLERGY. sHE HAD IT WRITTEN DOWN IN HER BAG. alendronate sodium (Verified Allergy, Unknown, UNKNOWN, 01/07/17) atenolol (Verified Allergy, Unknown, UNKNOWN, 01/07/17) fluoxetine (Verified Allergy, Unknown, UNKNOWN, 01/07/17) phentermine (Verified Allergy, Unknown, UNKNOWN, 01/07/17) topiramate (Verified Allergy, Unknown, UNKNOWN, 01/07/17) atorvastatin (Verified Adverse Reaction, Severe, MUSCLE CRAMPING, 01/07/17) Scheduled Carvedilol (Carvedilol) 3.125 Mg Tablet 3.125 MG PO QPM Furosemide (Lasix) 80 Mg Tablet 80 MG PO BID nonHD days Furosemide (Furosemide) 80 Mg Tab 160 MG PO Qevening HD days Hydrocodone-Acetaminophen 5-325 mg (Hydrocodone-Acetaminophen 5-325 mg) 1 Each Tablet 2 TABLET PO TID Lisinopril (Lisinopril) 5 Mg Tablet 5 MG PO DAILY Omeprazole (Omeprazole) 20 Mg Capsule.dr 20 MG PO DAILY Sevelamer Carbonate (Renvela) 800 Mg Tablet 800 MG PO BID Vit B Cmplx 3/FA/Vit C/Biotin (Nephro-Michael Rx) 1 Each Tablet 1 TABLET PO DAILY Warfarin Sodium (Warfarin Sodium) 5 Mg Tablet 2.5 MG PO DAILY Scheduled PRN Docusate Sodium (Colace) 100 Mg Capsule 200 MG PO BID PRN PRN For Constipation Gabapentin (Gabapentin) 100 Mg Capsule 100-200 MG PO HS PRN PRN For Sleep Ondansetron (Ondansetron) 4 Mg Tablet 4-8 MG PO Q6H PRN PRN For Nausea General Time Seen by MD: 09:08 Chief Complaint Flank pain right Hx Obtained From: Patient, EMS Arrived By: Ambulance Sudden in Onset?: Yes Onset Occurred: 2 days ago Symptom Duration: Waxes and wanes Location: : Flank right Quality: Painful Radiation: : Does not radiate Severity: Current: Moderate Severity: Maximum: Moderate Recent Healthcare: No recent doctor visit Past Medical History Past Medical History Renal Failure Reports: Hypertension Reports: Atrial fibrillation Past Surgical History two shoulder surgeries right leg ventral hernia repair Reports: Cholecystectomy Smoking History Former Smoker Ambulatory Status Walker Review of Systems Reports: dry heaving Denies: recent fall or trauma to the back GI: Reports: Abdominal pain, Nausea Female: Reports: Flank pain (right), Hematuria (for the last two months), Urinary frequency, Denies: Dysuria Complete sys rev & neg: except as marked. Physical Exam Vital Signs Vital Signs (First) Date Time Temp Pulse Resp B/P Pulse Ox O2 Delivery O2 Flow Rate FiO2 02/03/17 09:11 36.7 71 18 143/81 99 02/03/17 11:08 Room Air Initial VS: Reviewed Head / Eyes: Atraumatic, Normocephalic Neck: Supple, Non-tender, Full range of motion Extremities: Vascular intact, Neuro intact, No swelling, No tenderness Skin: Warm, Dry, No cyanosis Neurologic: Alert, Oriented, Nonfocal General/Constitutional: Awake, Alert, Cooperative Distress / Hydration: Positive: Distress mild Respiratory / Chest: Atraumatic, Breath sounds NL, Breath sounds = bilat, No respiratory distress, No rales, No rhonchi, No wheezing Cardiovascular: Heart rate NL, Regular rhythm, Heart sounds NL, No gallop, No murmurs, No rubs Bilateral lower extremity edema Abdomen: Atraumatic, Soft, Non-tender, No guarding, No rebound, BS normoactive Back: Atraumatic Right CVA tenderness Interpretation & Diagnostics PROCEDURE: CT KUB ([id number]) IMPRESSION: 1. Mild right pelviectasis and hydroureter without ureterolithiasis. This finding may be associated with a recently passed ureteral calculus. Of note, there are no calculi within the bladder. Alternatively, occult ureteral or bladder mass could be considered in the differential. Further catheterization as warranted, CT IVP is recommended. 2. Punctate focus of gas within the bladder. If the patient has been catheterized, this may be secondary to recent catheterization. Alternatively, gas-forming infection should be considered in the differential. 3. Bladder wall is not well evaluated for thickening or abnormal mass in the decompressed state. CT IVP may be helpful if further characterization is warranted. 4. Normal appendix. Dictated by: Svetlana Walker M.D. on 02/03/2017 at 10:14 Approved by: Svetlana Walker M.D. on 02/03/2017 at 10:26 Lab Results Interpretation Result Diagram: 02/03/17 1011 02/03/17 1011 Test 02/03/17 09:30 02/03/17 10:11 Urine Color Yellow (YELLOW) Urine Appearance Cloudy (CLEAR,HAZY) Urine pH 5.0 (5.0-8.0) Urine Specific Fred 1.025 (1.003-1.035) Urine Protein 300mg/dL (NEG,TRACE) Urine Glucose (UA) 100mg/dL (NEGATIVE) Urine Ketones Negativemg/dL (NEGATIVE) Urine Occult Blood Large (NEGATIVE) Urine Nitrite Negative (NEGATIVE) Urine Bilirubin Negative (NEGATIVE) Urine Urobilinogen Normalmg/dL (NORMAL) Urine Leukocyte Esterase Moderate (NEGATIVE) Urine RBC 11-50/hpf (0-2) Urine WBC >50/hpf (0-5) Urine Epithelial Cells Occasional/hpf (NONE-MOD) Urine Crystals None seen (NONE SEEN) Urine Bacteria Many/hpf (NONE-FEW) Urine Hyaline Casts None/lpf (NONE) Urine Granular Casts None seen (NONE SEEN) Urine Waxy Casts None seen (NONE SEEN) Urine Red Blood Cell Casts None seen (NONE SEEN) Urine White Blood Cell Casts None seen (NONE SEEN) Urine Mucus None seen (None Seen) Urine Trichomonas None seen (NONE SEEN) Urine Yeast None (NONE SEEN) Urinalysis Comment None Urine Culture Reflexed Indicated White Blood Count 7.1th/mm3 (3.8-10.1) Red Blood Count 3.59mil/mm3 (3.90-5.20) Hemoglobin 11.6g/dL (12.0-15.6) Hematocrit 34.4% (35.0-46.0) Mean Corpuscular Volume 95.8fL (81-100) Mean Corpuscular Hemoglobin 32.3pg (27.0-35.0) Mean Corpuscular Hemoglobin Concent 33.7% (32.0-37.0) Red Cell Distribution Width 14.3% (12.3-15.4) Platelet Count 124bil/L (150-400) Neutrophils (%) (Auto) 82.6% (40-74) Lymphocytes (%) (Auto) 8.8% (14-46) Monocytes (%) (Auto) 7.8% (4-12) Eosinophils (%) (Auto) 0.4% (0-5) Basophils (%) (Auto) 0.1% (0-3) Prothrombin Time 14.5sec (8.1-12.5) Prothromb Time International Ratio 1.35ratio Sodium Level 131mEq/L (134-144) Potassium Level 4.9mEq/L (3.5-5.2) Chloride Level 88mEq/L (97-108) Carbon Dioxide Level 19mmol/L (18-29) Blood Urea Nitrogen 66mg/dL (8-27) Creatinine 6.73mg/dL (0.57-1.00) Estimat Glomerular Filtration Rate 9mL/min (>59) Glucose Level 384mg/dL (60-99) Lactic Acid Level 2.4mmol/L (0.4-2.0) Calcium Level 9.5mg/dL (8.5-10.1) Magnesium Level 2.6mg/dL (1.6-2.6) Total Bilirubin 1.3mg/dL (0.0-1.2) Aspartate Amino Transf (AST/SGOT) 17U/L (0-50) Alanine Aminotransferase (ALT/SGPT) 9U/L (0-32) Alkaline Phosphatase 162U/L (25-165) Total Protein 7.8g/dL (6.4-8.4) Albumin 3.8g/dL (3.4-5.0) Lipase 26U/L (13-60) Re-Eval/Medical Decision Med Decision/Clinical Course Pyelonephritis with multiple comorbid conditions. We will plan to admit. IV Rocephin given. Source of Hx: Old records Re-Evaluation/Progress : Time of Eval: 11:06 Re-Evaluation/Progress Note: Rechecked pt. The pt continues to have pain and is getting another dose of medication. Discussed lab results, imaging results,diagnosis and plan to admit. Pt understands and agrees with the plan for admission. All questions addressed. Consultation #1: Referral / Consult Name: Gregory Robbins MD Consulted With: Nephrology Call Returned at: 11:10 Tuck Pointer Helper: Will see patient, Agrees with eval, Agrees with plan, Accepts admit Note: Dr. Bansal agrees to consult. Consultation #2: Referral / Consult Name: Darleen Schultz DO Consulted With: Hospitalist Call Returned at: 11:46 Tuck Pointer Helper: Will see patient, Agrees with eval, Agrees with plan, Accepts admit Counseled Regarding: Diagnosis, Lab results, Need for admission Discharge & Departure Primary Impression: Pyelonephritis Additional Impression: End stage renal disease Disposition: ADMITTED TO HOSPITAL Discharge Condition All VS Reviewed: Yes Referrals: Kemar Jo MD (PCP) Scribe Attestation Portions of this note were transcribed by Sarah Pollock. I,, personally performed the history,physical exam and medical decision-making;I reviewed and confirmed the accuracy of the information in the transcribed note. Signed by Dacia Somers. 02/03/17 copies to: Kemar Jo MD, Timothy S DO Feb 03, 2017 09:09 Sarah Pollock Feb 03, 2017 09:19
[2017-02-03] MEDS ORDERED: Ondansetron 2 mg/mL 2 mL Inj IVPUSH PRN ×2 (09:20→12:00)
[2017-02-03] MEDS ORDERED: Ondansetron 8 mg ODT Tablet PO ONE (09:25)
[2017-02-03] MEDS: HYDROmorphone 0.5 mg/0.5 mL iSecure Syringe IVPUSH PRN ×3 (09:50→12:58)
[2017-02-03 10:21] LABS: BASOPHILS % (AUTO) 0.1 % (0-3); EOSINOPHILS % (AUTO) 0.4 % (0-5); MONOCYTES % (AUTO) 7.8 % (4-12); Mean Corpuscular Hemoglobin 32.3 pg (27.0-35.0); Mean Corpuscular Volume 95.8 fL (81-100); NEUTROPHILS % (AUTO) 82.6 % (40-74); Platelet Count 124 bil/L (150-400)
--- NOTE | 2017-02-03 10:28 | DRSVH ---
PROCEDURE: CT KUB ([id number]) INDICATIONS: right flank pain, hematuria TECHNIQUE: Noncontrast 5 mm thick sections acquired from the diaphragms to the symphysis. 5 mm thick coronal an d sagittal reformats were then performed. For radiation dose reduction, the following was used: aut omated exposure control, adjustment of mA and/or kV according to patient size. COMPARISON: [facility], CT, CT ABD PELVIS WO CON, 06/14/2015, 18:12. [facility], C T, ABDOMEN/PELVIS WITH CONTRAST, 09/29/2015, 11:45. FINDINGS: Image quality: Excellent. Lung bases: Focal consolidation is present at the left lung base. There is a trace left pleural effus ion. Urinary system: The bilateral kidneys are atrophic. There is a moderate amount of perinephric fat st randing present. No nephrolithiasis or left hydronephrosis. No left hydroureter. A 2 mm calcification is present adjacent to the distal left ureter (series 2, image 74). The location of this calcificati on is unchanged when compared with the study dated 06/14/15 and the study dated 09/29/15 suggesting th e presence of a phlebolith as opposed to a distal ureteral calculus. There is mild right pelviectasis and mild right hydroureter. No right ureterolithiasis. The bladder is decompressed. A punctate focus of gas is present within the nondependent bladder. Blad jayden wall cannot be well evaluated in the decompressed state. There is a small amount of low-density f ree pelvic fluid. Uterus and ovaries are diminutive, as expected. Other solid organs: Liver and spleen are normal in size. Gallbladder is surgically absent. Pancrea s is atrophic. No adrenal nodules. Peritoneum and bowel: Unenhanced bowel loops demonstrate normal wall thickness and caliber. The appe ndix is thin walled. No free fluid or air. Nodes and vessels: No retroperitoneal or mesenteric adenopathy by size criteria. Aorta and inferior vena cava are normal in caliber. Dense atheromatous calcifications are present throughout the abdom inal aorta. Abdominal wall: There is diastasis of the rectus abdominis musculature. Pelvis: No free pelvic fluid. No inguinal hernias or adenopathy. Bones: No suspicious bony lesions. No vertebral body compression fractures. Moderate to severe dege nerative changes are present throughout the thoracolumbar spine. No acute intra-abdominal findings. N ormal appendix. IMPRESSION: 1. Mild right pelviectasis and hydroureter without ureterolithiasis. This finding may be associated w ith a recently passed ureteral calculus. Of note, there are no calculi within the bladder. Alternativ waldo, occult ureteral or bladder mass could be considered in the differential. Further catheterization as warranted, CT IVP is recommended. 2. Punctate focus of gas within the bladder. If the patient has been catheterized, this may be second rodriguez to recent catheterization. Alternatively, gas-forming infection should be considered in the diffe rential. 3. Bladder wall is not well evaluated for thickening or abnormal mass in the decompressed state. CT I MACHINERY ERECTOR may be helpful if further characterization is warranted. 4. Normal appendix. Dictated by: Svetlana Walker M.D. on 02/03/2017 at 10:14 Approved by: Svetlana Walker M.D. on 02/03/2017 at 10:26
[2017-02-03 10:33] LABS: INR 1.35 ratio
[2017-02-03 10:40] LABS: Magnesium 2.6 mg/dL (1.6-2.6)
[2017-02-03 11:04] LABS: APPEARANCE,URINE CLOUDY (CLEAR,HAZY); COLOR,URINE YELLOW (YELLOW); OCCULT BLOOD,URINE LARGE (NEGATIVE); UROBILINOGEN,URINE NORMAL (NORMAL)
[2017-02-03] MEDS ORDERED: cefTRIAXone Inj 2,000 MG in Dextrose 5% Minibag Plus 50 ML IV ONE (11:05)
[2017-02-03] MEDS ORDERED: Alum-Mag Hydrox-Simeth 30 mL Suspension PO PRN ×2 (12:00→17:10)
--- NOTE | 2017-02-03 13:49 | PCM.HPMED ---
Subjective Date of Service Feb 03, 2017 Primary Provider: Admitting Physician: Darleen Schultz DO Primary Care Physician: Kemar Jo MD Attending Physician: Darleen Schultz DO Allergies Coded Allergies: liraglutide (Verified Allergy, Severe, RASH, 01/07/17) pramipexole (Unverified Allergy, Severe, BROWN DEEP ULCERS ON LEGS AND FEET, 01/07/17) PATIENT STATES THIS IS A NEW ALLERGY. sHE HAD IT WRITTEN DOWN IN HER BAG. alendronate sodium (Verified Allergy, Unknown, UNKNOWN, 01/07/17) atenolol (Verified Allergy, Unknown, UNKNOWN, 01/07/17) fluoxetine (Verified Allergy, Unknown, UNKNOWN, 01/07/17) phentermine (Verified Allergy, Unknown, UNKNOWN, 01/07/17) topiramate (Verified Allergy, Unknown, UNKNOWN, 01/07/17) atorvastatin (Verified Adverse Reaction, Severe, MUSCLE CRAMPING, 01/07/17) PMH Social History Hx Alcohol Use: No Hx Substance Use: No Hx Tobacco Use: Yes Smoking Status: Former Smoker Exam Vital Signs Vital Sign - Last Date Time Temp Pulse Resp B/P Pulse Ox O2 Delivery O2 Flow Rate FiO2 02/03/17 13:26 36.1 75 20 106/75 97 Room Air Lab and Diagnostics Result Diagram: 02/03/17 1011 02/03/17 1011 Assessment & Plan CC: Back pain and abdominal pain HPI: Patient is a 71-year-old female who presents to the emergency room with the complaint of severe back and abdominal pain. The patient is on dialysis Friday, Friday, Friday and does make urine and states that for the last month she has been complaining of increased urinary frequency but denies any burning. The patient also brought this up to her PCP and was not treated. The patient currently complains of abdominal pain, back pain, nausea, vomiting, constipation but denies any chest pain and diarrhea. Patient states that she has some mild shortness of breath. While in the emergency room the patient had a UA which was done and showed the patient to be positive for bacteria, nitrates , and leukoesterase. The patient is being admitted for IV antibiotics for a pyelonephritis. Home medications: Carvedilol 3.125 mg by mouth every nightly Colace 200 mg by mouth twice a day when necessary constipation Lasix 80 mg by mouth twice a day on non-hemodialysis days Lasix 160 mg by mouth every nightly on hemodialysis days Gabapentin 1-200 mg by mouth daily at bedtime when necessary Hydrocodone/acetaminophen 10/16/2024 2 tabs by mouth 3 times a day Lisinopril 5 mg by mouth daily Omeprazole 20 mg by mouth daily Zofran 4-8 mg by mouth daily at bedtime when necessary nausea Renvela 800 mg by mouth twice a day Nephro-Michael 1 tab daily Warfarin 2.5 mg by mouth daily Allergies: Alendronate Atenolol: Hives Atorvastatin: Muscle cramps Fluoxetine Liraglutide Phentermine Pramipexole: Ulcers Topiramate: Unsure PMHx: ESRD on dialysis Afib (on coumadin) HTN DM Chronic shoulder pain status post fall SHx: Ventral hernia repair cholecystectomy FHx: Father age 73 had stroke, hypertension, diabetes Mother age 73 non-Hodgkin's lymphoma SocHx: Occupation: Tobacco history: Former 1 pack per day smoker quit in 1988 Alcohol use: Previous mild to moderate alcohol use, currently patient has not drank alcohol in several years Drug use: Patient denies, only uses marijuana cream for her shoulder pain ROS: A complete review of systems was performed or attempted to be performed. Please see HPI for pertinent positives, all other systems are negatives. Physical Exam: GEN: Patient was awake, alert, responding appropriately to questions HEENT: Pupils equal round and reactive to light, extraocular eye muscles intact , Neck soft supple, trachea midline, nomocephalic/atraumatic CV: +S1/S2, regular rate and rhythm, no murmur auscultated Respiratory: CTAB, no wheezes, rales, rhonchi GI: +bowel sounds x4, soft, compressible, tender to palpation , positive costovertebral tenderness bilaterally EXT: no clubbing, cyanosis, +2 pitting edema bilaterally Neuro: Cranial nerves II-XII grossly intact Psych: mood and affect were appropriate Assessment and Plan 71-year-old female with past medical history of diabetes, hypertension, A. fib, end-stage renal disease presents secondary to pyelonephritis Lactic acidosis most likely secondary to pyelonephritis, present on admission, active -UA + nitrites, many bacteria, + leukocyte esterase -UA culture pending -Lactic acid elevated at 2.4 -Follow up procalcitonin -Blood cultures pending -IV ertapenem as the patient does have a history of ESBL ESRD, present on admission, active -Currently in dialysis dialysis days Friday, Friday, Friday -Nephrology consulted for dialysis treatments -80 of Lasix on hemodialysis days Friday, Friday, Friday -160 of Lasix on non-hemodialysis days Friday, , Friday, Friday Diabetes uncontrolled, present on admission, active -Glucose 384 on admission -Hemoglobin A1c pending -insulin sliding scale -Start Lantus 10 units daily at bedtime HTN, present on admission, stable - Continue carvedilol and lisinopril Afib, present on admission, currently stable - Continue carvedilol -Continue warfarin dose per pharmacy Code Status: Full code Disposition: Due to the nature of the patient's current diagnosis anticipated stay is greater than 2 midnighte Time spent 60 minutes Darleen Schultz DO Feb 03, 2017 13:49
[2017-02-03] MEDS ORDERED: Polyethylene Glycol (PEG) 17 Gm Powder PO PRN (17:10)
[2017-02-03] MEDS ORDERED: Glucose 40% Oral Gel 15 Gm Tube PO PRN (17:10)
[2017-02-03] MEDS: Insulin LISPRO 300 Unit/3 mL Inj SUBQ SCH ×2 (17:30→21:28)
--- NOTE | 2017-02-03 17:49 | PCM.ADCARE ---
Advance Care Planning Note Plan: Date: 02/03/2017 Diagnosis: End-stage renal disease Pyelonephritis Hypertension Age of fibrillation Purpose of encounter: Goals of care Parties in attendance: The patient, Dr. Schultz Decisional capacity: Good Plan: The patient is aware of the current diagnosis and would like to continue to be full code. The patient understands that this means for chest compressions , intubation, pressors, and all measures involved with CPR. CODE STATUS: Full code Time spent with advanced care planning: Greater than 16 minutes Darleen Schultz DO Feb 03, 2017 17:49
[2017-02-03] MEDS ORDERED: Dextrose 10% 250 ML IV PRN (17:50)
[2017-02-03] MEDS ORDERED: Ertapenem Inj 1,000 MG in 0.9% Sodium Chloride 50 ML IV ONE (17:50)
--- NOTE | 2017-02-03 18:30 | PCM.PHAPRO ---
Progress Date of Service: Feb 03, 2017 Warfarin Management Per Pharmacy: Indication: Stroke prophylaxis as patient has atrial fibrillation ([id number]- Vasc = 4) Goal INR: 2-3 Home Dose: Warfarin 6 mg PO daily Labs: Hgb/Hct: 11.6/34.4 Plt: 124 INR: 1.35 Drug Interactions: Ertapenem (mild to moderate) Recommendation: Warfarin 9 mg po x 1 today INR ordered daily Pharmacy to continue to monitor Thank You, Linda Mulligan, Pharm D. Linda Mulligan Feb 03, 2017 18:30
[2017-02-03] MEDS ORDERED: 0.9% Sodium Chloride 250 ML ONE (18:35)
--- NOTE | 2017-02-03 19:01 | CONS ---
[address] [address] CONSULTATION REPORT PATIENT: CARLA GUTIERREZ : 1945 MR#: [id number] ADMIT: 02/03/2017 JOB ID: [id number] DATE OF SERVICE: 02/03/2017 REQUESTING PHYSICIAN: Nguyễn Huddleston DO. REASON FOR CONSULTATION: Management of end-stage renal disease. CHIEF COMPLAINT: Right flank pain and nausea, vomiting. PRESENT ILLNESS: This is a 71-year-old, lady with significant past medical history of end-stage renal disease, on hemodialysis every Friday, Friday, and Friday, type 2 diabetes, hypertension, paroxysmal atrial flutter, who presented to the hospital with a complaint of right flank pain. The patient reported that she started to feel sick over the weekend, that was a couple days ago. She started to have right flank pain, nausea, dry heaves, and chills. The patient also reported that she has had intermittent blood in the urine over the past 2-3 months. The patient reports no history of kidney stones in the past. According to the record, he had history of ESBL E. coli last year in December and another episode of UTI in May 2015. Patient produces urine, 1-2 cups a day. She is the patient of Dr. Dee and Dr. Morgan. She goes to dialysis unit in [place]. Initial blood work showed WBC of 7.1, hemoglobin of 11.6, sodium of 131, potassium of 4.9, BUN of 66, creatinine of 6.37. UA showed over 50 WBCs, 11- [address] KUB showed mild right pelviectasis and hydroureter without ureterolithiasis. The report stated that this finding may be associated with recently passed ureteral calculus. However, occult ureteral or bladder mass should be considered. The patient has no fever in the emergency department. Her initial vitals showed temperature of 36.7, pulse of 71, respiratory of 18, blood pressure of 143/81. She received IV ceftriaxone 2 g x1 in the emergency department along with Dilaudid and Zofran. PAST MEDICAL HISTORY: 1. End-stage renal disease, on hemodialysis every Friday, Friday, and Friday. She was briefly on peritoneal dialysis but discontinued due to more functioning catheter. 2. Type 2 diabetes. 3. Hypertension. 4. Hypothyroid. 5. History of ESBL E coli UTI. 6. History of MRSA pneumonia. 7. Paroxysmal atrial flutter. 8. Renal osteodystrophy. 9. Status post ground level fall with fractures of the right lower extremity and shoulders. PAST SURGICAL HISTORY: 1. Status post peritoneal dialysis catheter placement and removal. 2. Right tunnelled catheter placement and removal. 3. 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 4. Status post umbilical hernia repair. 5. Status post cholecystectomy. 6. Status post multiple orthopedic surgeries. SOCIAL HISTORY: She is a former smoker. Denies current use of alcohol, tobacco, illicit drugs. FAMILY HISTORY: Noncontributory. ALLERGIES: Alendronate, atenolol, atorvastatin, fluoxetine, phentermine, topiramate, pramipexole, and liraglutide. REVIEW OF SYSTEMS: Constitutional: Positive for subjective fever and chills. Poor appetite. Positive for nausea and dry heaves. HEENT: No headaches. No blurred vision. Cardiovascular: No chest pain. No shortness of breath. Pulmonary: No cough. No hemoptysis. GI: As per HPI. : As per HPI. Skin: No rashes. No excoriation. Hematology: No active bleeding except hematuria. No bruises. Endocrine: No polyuria, polydipsia. Neuro: No neurological deficit. No headaches, no blurred vision. PHYSICAL EXAMINATION: Vitals: Temperature 36.7, pulse 71, respiratory rate 18, blood pressure 136/48, O2 sat 92% on room air. General appearance: Awake, alert, oriented x3. In no acute distress. HEENT: Atraumatic. Dry mucous membranes. PERRLA. No pallor, no icteric sclerae. No JVD. No lymphadenopathy. No thyroid enlargement. Heart: Regular rhythm. Normal S1, S2. No murmurs, rubs, or gallops. Lungs: Clear to auscultation bilaterally. No wheezing, no rhonchi. Abdomen soft, active bowel sounds. Moderate tenderness on the right lower quadrant. Mild tenderness on the suprapubic and left lower quadrant. Active bowel sounds. No hepatosplenomegaly. Extremity: 2+ edema on the lower extremity with chronic skin changes. Right AV fistula with good thrill and bruit. LABORATORY: WBC 7.1, hemoglobin 11.6. Sodium 131, potassium 4.9, chloride 88, bicarb 19. BUN 66, creatinine 6.73. Glucose 384, lactic acid 2.4. Calcium 9.5. Magnesium 2.6. ASSESSMENT: 1. End-stage renal disease, on hemodialysis every Friday, Friday, and Friday. 2. Complicated UTI, acute pyelonephritis. The patient had history of extended-spectrum beta-lactamase Escherichia coli. 3. Type 2 diabetes with renal manifestation. 4. Hypertension with hypertensive nephrosclerosis. 5. Hyponatremia, secondary to uncontrolled hyperglycemia. 6. Renal osteodystrophy. Plan: -The patient will resume hemodialysis today, 4 hours, ultrafiltration, 4 L. -Continue current antibiotics. -Pending finalized culture. -Resume her antihypertensive medications. -Resume phosphate binders. Thank you for allowing me to participate in the care of your patient. We will monitor along with you. CODY
[2017-02-03] MEDS: HYDROcodone-APAP 5-325 mg Tablet PO SCH (19:05)
[2017-02-03] MEDS: Insulin GLARgine 100 Unit/mL Syringe SUBQ SCH (21:24)
[2017-02-03] MEDS: Ondansetron 2 mg/mL 2 mL Inj IVPUSH PRN ×2 (23:23→23:36)
[2017-02-04] VITALS: BP 144/74; PULSE 76; RESP 20; O2SAT 97
[2017-02-04 04:51] VITALS: BP 104/63; PULSE 63; RESP 20; O2SAT 92
[2017-02-04] MEDS: Pantoprazole 20 mg ER24 Tablet PO SCH (05:54)
[2017-02-04 06:49] LABS: BASOPHILS % (AUTO) 0.1 % (0-3); EOSINOPHILS % (AUTO) 0.1 % (0-5); INR 1.77 ratio; MONOCYTES % (AUTO) 10.6 % (4-12); Mean Corpuscular Hemoglobin 32.4 pg (27.0-35.0); Mean Corpuscular Volume 96.2 fL (81-100); NEUTROPHILS % (AUTO) 79.6 % (40-74); Platelet Count 125 bil/L (150-400)
[2017-02-04 06:56] LABS: Magnesium 2.2 mg/dL (1.6-2.6); Phosphorus 4.4 mg/dL (2.5-4.9)
[2017-02-04] MEDS ORDERED: cefTRIAXone Inj 2,000 MG in Dextrose 5% Minibag Plus 50 ML IV SCH (08:00)
[2017-02-04] MEDS: HYDROcodone-APAP 5-325 mg Tablet PO SCH ×3 (09:29→21:13)
[2017-02-04] MEDS: Insulin LISPRO 300 Unit/3 mL Inj SUBQ SCH ×4 (09:29→21:15)
[2017-02-04] MEDS: Vitamin B Complex/Vit C Tablet PO SCH (09:29)
[2017-02-04 12:14] VITALS: BP 118/55; PULSE 73; RESP 20; O2SAT 98
--- NOTE | 2017-02-04 13:32 | PCM.PHAPRO ---
Progress Date of Service: Feb 04, 2017 Date Feb 04-Jan INR 1.35 1.77 INR change 0.42 Warf Dose 9 MG 6MG Lawanda Leone PharmD Feb 04, 2017 13:32
--- NOTE | 2017-02-04 17:02 | PCM.PNNEPH ---
Subjective Date of Service Feb 04, 2017 Subjective The Patient conintues to improve, she is afebrile and her only ocmplaint is right CVA pain. Her appetite is improved. I have reviewed her chart and Dr. Bansal 's notes. Her blood cultures are negative but her urine is +>100,000 gram neg rods, probably E. coli with sensitivities pending. Exam Vital Signs Vital Sign - Last Date Time Temp Pulse Resp B/P Pulse Ox O2 Delivery O2 Flow Rate FiO2 02/04/17 12:14 36.8 73 20 118/55 98 Nasal Cannula 1.00 Intake and Output 02/03/17 02/03/17 02/04/17 Cumulative From/Thru 15:00 23:00 07:00 02/03/17 09:11 - 02/04/17 04:59 Intake Total 80 ml 50 ml 130 ml Output Total 4000 ml 50 ml 4050 ml Balance -3920 ml 0 ml -3920 ml Intake Oral 50 ml 50 ml IV Total 80 ml 80 ml Output Urine Total 50 ml 50 ml Ultrafiltrate 4000 ml 4000 ml Exam HEENT +pale sclera, mosit mucous membranes NEcl Supple, no nodes, thryomegaly or JVD Lungs clear but diminished breath sounds due to CVA pain. HEart RRw/CHITRA Abdomen soft mild RUQ tenderness w/ radiation to right CVA, no rebount or HSM Ext no clubbing, cyanosis or edema Skin turgor good no rashes Lab and Diagnostics Result Diagram: 02/04/1761402/04/1715 Plan Impression Impression #1 ESRD #2 pyelonephritis Rec 1. Pt. will be dialyzed tomorrow, 2. await urine results Greg Santiago DO Feb 04, 2017 17:02
--- NOTE | 2017-02-04 17:32 | PCM.PNMED ---
Subjective Date of Service Feb 04, 2017 Subjective Patient was seen and examined at bedside today. Patient denies any chest pain, shortness of breath, nausea, vomiting, diarrhea. Patient does still complain of abdominal pain and bilateral flank pain but states that her pain has improved since admission. Overnight events: None Exam Vital Signs Vital Sign - Last Date Time Temp Pulse Resp B/P Pulse Ox O2 Delivery O2 Flow Rate FiO2 02/04/17 12:14 36.8 73 20 118/55 98 Nasal Cannula 1.00 Intake and Output 02/03/17 02/03/17 02/04/17 Cumulative From/Thru 15:00 23:00 07:00 02/03/17 09:11 - 02/04/17 04:59 Intake Total 80 ml 50 ml 130 ml Output Total 4000 ml 50 ml 4050 ml Balance -3920 ml 0 ml -3920 ml Intake Oral 50 ml 50 ml IV Total 80 ml 80 ml Output Urine Total 50 ml 50 ml Ultrafiltrate 4000 ml 4000 ml Exam Physical Exam: GEN: Patient was awake, alert, responding appropriately to questions HEENT: Pupils equal round and reactive to light, extraocular eye muscles intact , Neck soft supple, trachea midline, nomocephalic/atraumatic CV: +S1/S2, regular rate and rhythm, no murmurs auscultated Respiratory: CTAB, no wheezes, rales, rhonchi GI: +bowel sounds x4, soft, compressible, generalized tenderness to palpation, costovertebral tenderness EXT: no clubbing, cyanosis, edema Neuro: Cranial nerves II-XII grossly intact Psych: mood and affect were appropriate IVs and Medications Medications Reviewed: Medications were reviewed in detail Lab and Diagnostics Result Diagram: 02/04/1761402/04/17614 Assessment & Plan 71-year-old female with past medical history of diabetes, hypertension, A. fib, end-stage renal disease presents secondary to pyelonephritis Lactic acidosis most likely secondary to pyelonephritis, present on admission, active -UA + nitrites, many bacteria, + leukocyte esterase -UA culture preliminary read gram-negative rods -Lactic acid elevated at 2.4 -Trend procalcitonin -Lactic acid 2.4 -Blood cultures negative 24 hours -IV ertapenem as the patient does have a history of ESBL ESRD, present on admission, active -Currently in dialysis, dialysis days Friday, Friday, Friday -Nephrology consulted for dialysis treatments -80 of Lasix on hemodialysis days Friday, Friday, Friday -160 of Lasix on non-hemodialysis days Friday, , Friday, Friday Diabetes uncontrolled, present on admission, active -Glucose 384 on admission -Hemoglobin A1c 9.9 -Continue insulin sliding scale -Continue Lantus 10 units daily at bedtime -We will continue to monitor patient's blood sugars but seems to be responding well to Lantus plus insulin sliding scale at this time HTN, present on admission, stable - Continue carvedilol and lisinopril Afib, present on admission, currently stable - Continue carvedilol -Continue warfarin dose per pharmacy Code Status: Full code Disposition: The patient is currently doing well at this time. We will continue to await final results from urine culture as the patient does have a history of ESBL. Once we have the final culture family can decide whether the patient needs to continue on IV antibiotics or if she can go home on oral antibiotics. We will consider consult to infectious disease especially if this comes back positive for ESBL. Darleen Schultz DO Feb 04, 2017 17:31
[2017-02-04 19:33] VITALS: BP 118/67; PULSE 72; RESP 20; O2SAT 99
[2017-02-04] MEDS: Ertapenem Inj 500 MG in 0.9% Sodium Chloride 50 ML IV SCH (21:09)
[2017-02-04] MEDS: Insulin GLARgine 100 Unit/mL Syringe SUBQ SCH (21:15)
[2017-02-05 04:53] VITALS: BP 115/65; PULSE 67; RESP 20; O2SAT 98
[2017-02-05] MEDS: Pantoprazole 20 mg ER24 Tablet PO SCH (06:22)
[2017-02-05 07:18] LABS: INR 2.55 ratio
[2017-02-05 07:20] LABS: Mean Corpuscular Hemoglobin 31.2 pg (27.0-35.0); Mean Corpuscular Volume 96.2 fL (81-100)
[2017-02-05] MEDS: Vitamin B Complex/Vit C Tablet PO SCH (08:01)
[2017-02-05] MEDS: HYDROcodone-APAP 5-325 mg Tablet PO SCH ×3 (08:02→20:21)
[2017-02-05] MEDS: Insulin LISPRO 300 Unit/3 mL Inj SUBQ SCH ×4 (08:03→21:20)
[2017-02-05 09:32] VITALS: BP 111/56; PULSE 72; RESP 20; O2SAT 95
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
--- NOTE | 2017-02-05 10:26 | PCM.PHAPRO ---
Progress WARFARIN MAINTENANCE DOSING Home dose: 6mg daily Indication: A.Fib INR goal: 2-3 Date Feb 04-Feb 05-Jan INR 1.35 1.77 2.55 INR change 0.42 0.78 Warf Dose 9 MG 6MG 6MG Today's INR: 2.55, today's dose: 6mg Will continue to follow INR and adjust dose accordingly Divine Kaye Pharm.D Feb 05, 2017 10:26
[2017-02-05 10:44] VITALS: BP 114/56; PULSE 64
--- NOTE | 2017-02-05 11:27 | PCM.PNNEPH ---
Subjective Date of Service Feb 05, 2017 Subjective Patient continues to complain of some CVA tenderness but otherwise states she is feeling a bit better. Her appetite remains somewhat poor but no nausea or vomiting. Her blood cultures remain negative however her urine cultures were positive for ESBL sensitive to ertapenem and meropenem. Dr. Angelo from infectious disease is seeing the patient and his covering the antibiotics. This morning her hemoglobin is 10.8, sodium 131, potassium 4.2, chloride of 89, BUN and creatinine were 15 and 6.2 weight 1 respectively. Exam Vital Signs Vital Sign - Last Date Time Temp Pulse Resp B/P Pulse Ox O2 Delivery O2 Flow Rate FiO2 02/05/17 09:32 36.8 72 20 111/56 95 Room Air 02/05/17 04:53 1.00 Intake and Output 02/04/17 02/04/17 02/05/17 Cumulative From/Thru 15:00 23:00 07:00 02/03/17 09:11 - 02/05/17 05:53 Intake Total 1418 ml 100 ml 1648 ml Output Total 4050 ml Balance 1418 ml 100 ml -2402 ml Intake Oral 1418 ml 100 ml 1568 ml IV Total 80 ml Output Urine Total 50 ml Ultrafiltrate 4000 ml # Voids 1 1 2 # Bowel Movements 1 0 1 Exam Lungs are clear to auscultation with somewhat diminished. Heart is regular and rhythmic. Abdomen is soft with some right upper quadrant and bilateral CVA tenderness more pronounced on the right as compared to the left. There are otherwise really no rebound, guarding or masses noted. Extremities do not show any evidence of any clubbing, cyanosis, or edema. Lab and Diagnostics Result Diagram: 02/05/17 0655 02/05/17 0655 Plan Impression Impression #1 end-stage renal disease dialysis dependent number to pyelonephritis secondary to ESBL Recommendations #1 patient's predialysis today for 4 hours on a standard dialyzer, 3 potassium bath, 137 sodium, 400 blood flow is 600 dialysate flow, 800 of N1 100 and will try to take 2-3 L off. Greg Santiago DO Feb 05, 2017 11:27
--- NOTE | 2017-02-05 14:38 | PCM.PNMED ---
Subjective Date of Service Feb 05, 2017 Subjective Patient was seen and examined at bedside today. Patient denies any chest pain, shortness of breath, nausea, vomiting, diarrhea. The patient states that she is feeling improved from admission but still complains of some lethargy. Overnight events: None Exam Vital Signs Vital Sign - Last Date Time Temp Pulse Resp B/P Pulse Ox O2 Delivery O2 Flow Rate FiO2 02/05/17 09:32 36.8 72 20 111/56 95 Room Air 02/05/17 04:53 1.00 Intake and Output 02/04/17 02/04/17 02/05/17 Cumulative From/Thru 15:00 23:00 07:00 02/03/17 09:11 - 02/05/17 05:53 Intake Total 1418 ml 100 ml 1648 ml Output Total 4050 ml Balance 1418 ml 100 ml -2402 ml Intake Oral 1418 ml 100 ml 1568 ml IV Total 80 ml Output Urine Total 50 ml Ultrafiltrate 4000 ml # Voids 1 1 2 # Bowel Movements 1 0 1 Exam Physical Exam: GEN: Patient was awake, alert, responding appropriately to questions HEENT: Pupils equal round and reactive to light, extraocular eye muscles intact , Neck soft supple, trachea midline, nomocephalic/atraumatic CV: Irregular rate and rhythm, no murmurs auscultated Respiratory: CTAB, no wheezes, rales, rhonchi GI: +bowel sounds x4, soft, compressible, nontender to palpation EXT: no clubbing, cyanosis, +2 pitting edema Skin: Hyperpigmentation of the lower extremities bilaterally similar to yesterday and on admission Neuro: Cranial nerves II-XII grossly intact Psych: mood and affect were appropriate IVs and Medications Medications Reviewed: Medications were reviewed in detail Lab and Diagnostics Result Diagram: 02/05/1755 02/05/1755 Assessment & Plan 71-year-old female with past medical history of diabetes, hypertension, A. fib, end-stage renal disease presents secondary to pyelonephritis Lactic acidosis most likely secondary to pyelonephritis, present on admission, active -UA + nitrites, many bacteria, + leukocyte esterase -UA culture positive for ESBL -Lactic acid trending down 1.1 now within normal limits -Procalcitonin trending down and currently 0.60 -Blood cultures negative 2 days -Continue IV ertapenem - Infectious disease consulted (Dr. Angelo) ESRD, present on admission, active -Dialysis days Friday, Friday, Friday -Nephrology consulted for dialysis management -80 of Lasix on hemodialysis days Friday, Friday, Friday -160 of Lasix on non-hemodialysis days Friday, , Friday, Friday Diabetes uncontrolled, present on admission, active -Glucose 384 on admission, currently 161 -Hemoglobin A1c 9.9 -Continue insulin sliding scale -Continue Lantus 10 units daily at bedtime -We will continue to monitor patient's blood sugars but seems to be responding well to Lantus plus insulin sliding scale at this time HTN, present on admission, stable - Continue carvedilol and lisinopril Afib, present on admission, currently stable -Currently stable and rate controlled - Continue carvedilol -Continue warfarin dose per pharmacy Code Status: Full code Disposition: The patient is currently doing well at this time. The patient's case was discussed with infectious disease (Dr. Angelo) history is the patient will need a full 10 days of IV ertapenem therapy. The patient will most likely be discharged to assisted facility in [place] in order to complete her treatment. Patient will most likely be discharged tomorrow. VTE Prophylaxis: Theraputic Anticoag with Warfarin Resuscitation Status: CPR: Attempt Resuscitation Darleen Schultz DO Feb 05, 2017 14:38
[2017-02-05 17:51] VITALS: BP 114/59; PULSE 74; RESP 18; O2SAT 97
[2017-02-05 20:18] VITALS: BP 104/52; PULSE 64; O2SAT 96
[2017-02-05] MEDS: Ertapenem Inj 500 MG in 0.9% Sodium Chloride 50 ML IV SCH (20:20)
[2017-02-05] MEDS: Insulin GLARgine 100 Unit/mL Syringe SUBQ SCH (21:20)
[2017-02-06 05:05] VITALS: BP 111/65; PULSE 63; RESP 18; O2SAT 92
[2017-02-06] MEDS: Pantoprazole 20 mg ER24 Tablet PO SCH (06:32)
[2017-02-06 06:57] LABS: BASOPHILS % (AUTO) 0.5 % (0-3); EOSINOPHILS % (AUTO) 1.2 % (0-5); MONOCYTES % (AUTO) 13.1 % (4-12); Mean Corpuscular Hemoglobin 31.6 pg (27.0-35.0); Mean Corpuscular Volume 97.8 fL (81-100); NEUTROPHILS % (AUTO) 71.4 % (40-74); Platelet Count 143 bil/L (150-400)
[2017-02-06 07:44] LABS: INR 2.39 ratio
[2017-02-06] MEDS: Insulin LISPRO 300 Unit/3 mL Inj SUBQ SCH ×4 (08:00→22:00)
[2017-02-06] MEDS: HYDROcodone-APAP 5-325 mg Tablet PO SCH ×3 (08:19→20:25)
[2017-02-06] MEDS: Vitamin B Complex/Vit C Tablet PO SCH (08:19)
[2017-02-06 08:50] VITALS: BP 132/79; PULSE 73; RESP 18; O2SAT 97
--- NOTE | 2017-02-06 10:32 | PROG NOTE ---
[address] [address] PROGRESS NOTE PATIENT: CARLA GUTIERREZ : 1945 MR#: [id number] ADMIT: 02/03/2017 JOB ID: [id number] DATE: 02/06/2017 REASON FOR FOLLOWUP: Complicated ESBL E. coli urinary tract infection. INTERVAL HISTORY: Overnight, the patient reports no fevers, no chills, no sweats. She is continuing to feel gradually better. She still has some minimal right-sided flank pain, but is much improved over yesterday. No nausea, vomiting, or diarrhea. PHYSICAL EXAMINATION: Reveals an afebrile woman. Note that she has been afebrile throughout her three day hospital stay. Current temperature 36.8, pulse 73, respiratory rate 18, blood pressure 132/79. She is saturating well on room air, and she is in no acute distress. Examination of the head is unremarkable. Oral cavity is benign. The lungs are clear. Abdomen soft and nontender with the exception of some very mild right flank tenderness, which is demonstrably better than yesterday. LABORATORIES: Include a white count which is normal 5700, basically normal diff though she does have a mild monocytosis. Creatinine 4.24. Liver function tests are normal. Procalcitonin is stable at 0.6 which is normal for a dialysis patient, and I would stop checking that lab. Urinalysis with greater than 50 white cells and grew an ESBL E. coli. Blood cultures remain negative. No new imaging is available. IMPRESSION: This patient clearly has an extended-beta spectrum lactamase complicated Escherechia coli urinary tract infection with pyelonephritis on the right side. She is dramatically improving on ertapenem and I think she could be discharged at any time. Because she lives on [place] there is no feasible way to give her home IV ertapenem and even in dialysis it must be given once a day so I think she is probably need to be confined to a prison for a week or so to get the IV ertapenem or stay with a friend on the [facility] and come to the [facility]. RECOMMENDATIONS: 1. The patient should continue to receive ertapenem to complete a 10 day course either in a prison or coming to the [facility]. 2. Probiotics would be reasonable in this situation to try and diminish the risk of C. difficile colitis. 3. As there are no active ID issues, ID will go ahead and sign off on this case at this time.
--- NOTE | 2017-02-06 15:08 | PCM.PNMED ---
Subjective Date of Service Feb 06, 2017 Subjective Patient was seen and examined at bedside today. Patient denies any chest pain, shortness of breath, nausea, vomiting, diarrhea. Patient states that overall she is feeling much better compared to when she was admitted. Overnight events: None Exam Vital Signs Vital Sign - Last Date Time Temp Pulse Resp B/P Pulse Ox O2 Delivery O2 Flow Rate FiO2 02/06/17 08:50 36.8 73 18 132/79 97 Room Air 02/05/17 04:53 1.00 Intake and Output 02/05/17 02/05/17 02/06/17 Cumulative From/Thru 15:00 23:00 07:00 02/03/17 09:11 - 02/06/17 05:34 Intake Total 300 ml 200 ml 2148 ml Output Total 3300 ml 0 ml 7350 ml Balance -3300 ml 300 ml 200 ml -5202 ml Intake Oral 300 ml 200 ml 2068 ml IV Total 80 ml Output Urine Total 0 ml 50 ml Ultrafiltrate 3300 ml 7300 ml # Voids 1 0 3 # Bowel Movements 4 0 5 Exam Physical Exam: GEN: Patient was awake, alert, responding appropriately to questions HEENT: Pupils equal round and reactive to light, extraocular eye muscles intact , Neck soft supple, trachea midline, nomocephalic/atraumatic CV: +S1/S2, regular rate and rhythm, no murmurs auscultated Respiratory: CTAB, no wheezes, rales, rhonchi GI: +bowel sounds x4, soft, compressible, nontender to palpation EXT: no clubbing, cyanosis, edema Neuro: Cranial nerves II-XII grossly intact Psych: mood and affect were appropriate IVs and Medications Medications Reviewed: Medications were reviewed in detail Lab and Diagnostics Result Diagram: 02/06/17 0602/06/17 0600 Assessment & Plan 71-year-old female with past medical history of diabetes, hypertension, A. fib, end-stage renal disease presents secondary to pyelonephritis Lactic acidosis most likely secondary to pyelonephritis, present on admission, active -UA + nitrites, many bacteria, + leukocyte esterase -UA culture positive for ESBL -Lactic acid trending down 1.1 now within normal limits 02/05/17 -Procalcitonin trending down and currently 0.59 -Blood cultures negative 2 days -Continue IV ertapenem for 10 days total - Infectious disease consulted (Dr. Angelo) ESRD, present on admission, active -Dialysis days Friday, Friday, Friday -Nephrology consulted for dialysis management -80 of Lasix on hemodialysis days Friday, Friday, Friday -160 of Lasix on non-hemodialysis days Friday, , Friday, Friday Diabetes uncontrolled, present on admission, active -Glucose 384 on admission, currently 122 -Hemoglobin A1c 9.9 -Continue insulin sliding scale -Increase Lantus 15 units daily at bedtime -We will continue to monitor patient's blood sugars but seems to be responding well to Lantus plus insulin sliding scale at this time HTN, present on admission, stable - Continue carvedilol and lisinopril Afib, present on admission, currently stable -Currently stable and rate controlled - Continue carvedilol -Continue warfarin dose per pharmacy Code Status: Full code Disposition: The patient is currently doing well at this time. The patient's case was discussed with infectious disease (Dr. Angelo) history is the patient will need a full 10 days of IV ertapenem therapy. The patient will most [facility] be [facility] [place] in order to complete her treatment. Patient will most likely be discharged tomorrow following dialysis. VTE Prophylaxis: Theraputic Anticoag with Warfarin Resuscitation Status: CPR: Attempt Resuscitation Darleen Schultz DO Feb 06, 2017 15:08
--- NOTE | 2017-02-06 15:18 | PCM.PNNEPH ---
Bad tableDate of Service Feb 06, 2017 Subjective Patient is slowly improving. She is afebrile and her CVA tenderness is considerably less. This morning her sodium is 137, potassium 4.4, chloride 96, bicarbonate 24, BUN and creatinine were 30 and 4.4 respectively. Bad tableVital Signs Vital Sign - Last Date Time Temp Pulse Resp B/P Pulse Ox O2 Delivery O2 Flow Rate FiO2 02/06/17 08:50 36.8 73 18 132/79 97 Room Air 02/05/17 04:53 1.00 Intake and Output 02/05/17 02/05/17 02/06/17 Cumulative From/Thru 15:00 23:00 07:00 02/03/17 09:11 - 02/06/17 05:34 Intake Total 300 ml 200 ml 2148 ml Output Total 3300 ml 0 ml 7350 ml Balance -3300 ml 300 ml 200 ml -5202 ml Intake Oral 300 ml 200 ml 2068 ml IV Total 80 ml Output Urine Total 0 ml 50 ml Ultrafiltrate 3300 ml 7300 ml # Voids 1 0 3 # Bowel Movements 4 0 5 Exam Neck is supple without adenopathy, thyromegaly, or jugular venous distention. Lungs were clear to auscultation heart, heart is regular and rhythmical with a soft systolic murmur. Abdomen is soft without any tenderness rebound guarding masses or hepatosplenomegaly. Extremities Cameron evidence of any clubbing , cyanosis, or edema. Bad tableImpression Impression !. ESRD 2. ESBL pyelonephritis 3.DM nephropathy Rec 1. HD in am.
[2017-02-06 17:25] VITALS: BP 145/84; PULSE 66; RESP 18; O2SAT 99
[2017-02-06 20:23] VITALS: BP 123/70; PULSE 70; RESP 18; O2SAT 97
[2017-02-06] MEDS: Ertapenem Inj 500 MG in 0.9% Sodium Chloride 50 ML IV SCH (20:25)
[2017-02-06] MEDS: Insulin GLARgine 100 Unit/mL Syringe SUBQ SCH (22:16)
[2017-02-07 04:47] VITALS: BP 115/54; PULSE 63; RESP 18; O2SAT 94
[2017-02-07] MEDS: Pantoprazole 20 mg ER24 Tablet PO SCH (06:32)
[2017-02-07 06:51] LABS: INR 2.69 ratio
[2017-02-07] MEDS: Vitamin B Complex/Vit C Tablet PO SCH (08:06)
[2017-02-07] MEDS: Insulin LISPRO 300 Unit/3 mL Inj SUBQ SCH ×4 (08:07→22:00)
[2017-02-07] MEDS: HYDROcodone-APAP 5-325 mg Tablet PO SCH ×3 (08:07→21:11)
[2017-02-07 09:09] VITALS: BP 118/59; PULSE 61
--- NOTE | 2017-02-07 13:12 | PCM.PHAPRO ---
Progress -Feb 06-Feb 07-Jan 2.55 2.39 2.69 0.78 -0.16 0.3 6MG 6 5 Navin Graham Pharm.D Feb 07, 2017 13:12
[2017-02-07 14:12] VITALS: BP 128/68; PULSE 69; RESP 20; O2SAT 96
[2017-02-07] MEDS ORDERED: INVANZ1I IV (15:00)
--- NOTE | 2017-02-07 15:06 | PCM.DIMED ---
Discharge Instructions Date of Service Feb 07, 2017 Dates of Hospitalization Feb 03, 2017 at 12:08 Discharge Diagnosis Discharge Diagnosis # Acute pyelonephritis, present on admission - Urine culture positive for ESBL producing E. Coli # Acute lactic acidosis. Present on admission. Resolved # Endstage renal disease on hemodialysis. Present on admission. -Dialysis days Friday, Friday, Friday # Diabetes mellitus Type II, chronic and present on admission. -Hemoglobin A1c 9.9 # History of hypertension, present on admission, stable # Chronic atrial-fibrillation , present on admission, currently stable # Chronic anticoagulation with Warfarin. - INR 2.69 on 02/07/17 Diet Discharge Diet: Heart Healthy, Diabetic, Renal Diet Activity Discharge Activity: Other (per physical therapy) Patient Instructions Patient Instructions 1. Followup with primary care provider in 5-7 days 2. Followup with dialysis as previously planned. Follow-up Provider: Kemar Jo MD Provider: Sami Dee MD, Masoud Feb 07, 2017 15:06
[2017-02-07] MEDS ORDERED: HYDR-4003 PO (15:09)
--- NOTE | 2017-02-07 18:25 | PCM.PNMED ---
Subjective Date of Service Feb 07, 2017 Subjective Denies any new issues/complaints Exam Vital Signs Vital Sign - Last Date Time Temp Pulse Resp B/P Pulse Ox O2 Delivery O2 Flow Rate FiO2 02/07/17 14:12 36.6 69 20 128/68 96 Room Air 02/05/17 04:53 1.00 Intake and Output 02/06/17 02/06/17 02/07/17 Cumulative From/Thru 15:00 23:00 07:00 02/03/17 09:11 - 02/07/17 04:49 Intake Total 540 ml 2688 ml Output Total 50 ml 7400 ml Balance 490 ml -4712 ml Intake Oral 540 ml 2608 ml IV Total 80 ml Output Urine Total 50 ml 100 ml Ultrafiltrate 7300 ml # Voids 1 4 # Bowel Movements 1 6 General: Alert, Cooperative, No Acute Distress Head: Normal Eyes: Scleral Anicteric Nose: Mucous Membr Moist/[place] Mouth: Mucous Membr Moist/[place] Neck: Supple Chest & Lungs: Chest Wall Normal, Clear to auscultation & percussion Cardiovascular: Regular Rate/Rhythm Abdomen: Non-tender, Non-distended, Normoactive bowel tones, Soft Extremities: No cyanosis/clubbing/edma bilat Neurological: Grossly Neurologically Intact, Normal Speech IVs and Medications Medications Reviewed: Medications were reviewed in detail Lab and Diagnostics Result Diagram: 02/06/1759902/07/17 06 Assessment & Plan 71-year-old female with past medical history of diabetes, hypertension, A. fib, end-stage renal disease presents secondary to pyelonephritis # Acute ESBL E. Coli urinary tract infection (UTI)/pyelonephritis, present on admission. - Blood cultures negative 2 days - Appreciate ID consult. Will followup with recs - Continue IV ertapenem for 10 days total # Acute Lactic acidosis most likely secondary to pyelonephritis, present on admission. Resolved. - management as noted. # ESRD on hemodialysis, present on admission, active - Dialysis days Friday, Friday, Friday - Appreciate Nephrology consult. Will followup with recs. - 80 of Lasix on hemodialysis days Friday, Friday, Friday - 160 of Lasix on non-hemodialysis days Friday, , Friday, Friday # Diabetes uncontrolled, present on admission, active - Hemoglobin A1c 9.9 - Continue insulin sliding scale - Continue Lantus # HTN, present on admission, stable - Continue carvedilol and lisinopril # Chronic A-fib on anticoagulation with Coumadin, present on admission, currently stable - Currently stable and rate controlled - Continue carvedilol - Continue Warfarin. Followup INR Dispo: Likely SNF in am VTE Prophylaxis: Theraputic Anticoag with Warfarin Resuscitation Status: CPR: Attempt Resuscitation Catracho Ty Feb 07, 2017 18:25
[2017-02-07 19:57] VITALS: BP 147/79; PULSE 73; RESP 20; O2SAT 95
[2017-02-07] MEDS: Ertapenem Inj 500 MG in 0.9% Sodium Chloride 50 ML IV SCH (21:10)
[2017-02-07] MEDS: Insulin GLARgine 100 Unit/mL Syringe SUBQ SCH (22:34)
[2017-02-08 03:59] VITALS: BP 96/54; PULSE 58; RESP 18; O2SAT 96
[2017-02-08] MEDS: Pantoprazole 20 mg ER24 Tablet PO SCH (06:23)
[2017-02-08] MEDS: Insulin LISPRO 300 Unit/3 mL Inj SUBQ SCH (08:00)
[2017-02-08 08:11] LABS: INR 2.99 ratio
[2017-02-08] MEDS: HYDROcodone-APAP 5-325 mg Tablet PO SCH (09:23)
[2017-02-08] MEDS: Vitamin B Complex/Vit C Tablet PO SCH (09:24)
[2017-02-08 09:26] VITALS: BP 108/70; PULSE 60; RESP 18; O2SAT 95
--- NOTE | 2017-02-08 18:25 | PCM.DC.MED ---
Discharge Summary Date of Service Feb 08, 2017 Dates of Hospitalization Date of Hospital Admission Feb 03, 2017 at 12:08 Date of Discharge: Feb 08, 2017 Providers: Admitting Physician: Darleen Schultz DO Primary Care Physician: Kemar Jo MD Attending Physician: Catracho Miranda Diagnosis at Time of Discharge Diagnosis at Time of Discharge # Acute pyelonephritis, present on admission - Urine culture positive for ESBL producing E. Coli # Acute lactic acidosis. Present on admission. Resolved # Endstage renal disease on hemodialysis. Present on admission. -Dialysis days Friday, Friday, Friday # Diabetes mellitus Type II, chronic and present on admission. -Hemoglobin A1c 9.9 # History of hypertension, present on admission, stable # Chronic atrial-fibrillation , present on admission, currently stable # Chronic anticoagulation with Warfarin. - INR 2.69 on 02/07/17 Consultations 1. Nephrology 2. ID Brief History As noted in H&P by Dr. Schultz: Patient is a 71-year-old female who presents to the emergency room with the complaint of severe back and abdominal pain. The patient is on dialysis Friday , Friday, Friday and does make urine and states that for the last month she has been complaining of increased urinary frequency but denies any burning. The patient also brought this up to her PCP and was not treated. The patient currently complains of abdominal pain, back pain, nausea, vomiting, constipation but denies any chest pain and diarrhea. Patient states that she has some mild shortness of breath. While in the emergency room the patient had a UA which was done and showed the patient to be positive for bacteria, nitrates , and leukoesterase. The patient is being admitted for IV antibiotics for a pyelonephritis. Hospital Course # Acute ESBL E. Coli urinary tract infection (UTI)/pyelonephritis, present on admission. - Blood cultures negative - Appreciate ID consult. Will followup with recs - Continue IV ertapenem for 10 days total # Acute Lactic acidosis most likely secondary to pyelonephritis, present on admission. Resolved. - management as noted. # ESRD on hemodialysis, present on admission, active - Dialysis days Friday, Friday, Friday - Appreciate Nephrology consult. Will followup with recs. - 80 of Lasix on hemodialysis days Friday, Friday, Friday - 160 of Lasix on non-hemodialysis days Friday, , Friday, Friday # Diabetes uncontrolled, present on admission, active - Hemoglobin A1c 9.9 - Treated with insulin sliding scale and Lantus during this hospital # HTN, present on admission, stable - Continue carvedilol and lisinopril # Chronic A-fib on anticoagulation with Coumadin, present on admission, currently stable - Stable and rate controlled - Continued carvedilol - Continued Warfarin. Exam Vital Signs (Last) Date Time Temp Pulse Resp B/P Pulse Ox O2 Delivery O2 Flow Rate FiO2 02/08/17 09:26 36.6 60 18 108/70 95 Room Air 02/05/17 04:53 1.00 Exam General: Alert, Cooperative, No Acute Distress Head: Normal Eyes: Scleral Anicteric Nose: Mucous Membr Moist/[place] Mouth: Mucous Membr Moist/[place] Neck: Supple Chest & Lungs: Chest Wall Normal, Clear to auscultation bilat Cardiovascular: Regular Rate/Rhythm Abdomen: Non-tender, Non-distended, Normoactive bowel tones, Soft Extremities: No cyanosis/clubbing/edema bilat Neurological: Grossly Neurologically Intact, Normal Speech Test 02/03/17 09:30 02/03/17 10:11 02/04/17 06:15 02/05/17 06:55 Urine Color Yellow (YELLOW) Urine Appearance Cloudy (CLEAR,HAZY) Urine pH 5.0 (5.0-8.0) Urine Specific [place] 1.025 (1.003-1.035) Urine Protein 300mg/dL (NEG,TRACE) Urine Glucose (UA) 100mg/dL (NEGATIVE) Urine Ketones Negativemg/dL (NEGATIVE) Urine Occult Blood Large (NEGATIVE) Urine Nitrite Negative (NEGATIVE) Urine Bilirubin Negative (NEGATIVE) Urine Urobilinogen Normalmg/dL (NORMAL) Urine Leukocyte Esterase Moderate (NEGATIVE) Urine RBC 11-50/hpf (0-2) Urine WBC >50/hpf (0-5) Urine Epithelial Cells Occasional/hpf (NONE-MOD) Urine Crystals None seen (NONE SEEN) Urine Bacteria Many/hpf (NONE-FEW) Urine Hyaline Casts None/lpf (NONE) Urine Granular Casts None seen (NONE SEEN) Urine Waxy Casts None seen (NONE SEEN) Urine Red Blood Cell Casts None seen (NONE SEEN) Urine White Blood Cell Casts None seen (NONE SEEN) Urine Mucus None seen (None Seen) Urine Trichomonas None seen (NONE SEEN) Urine Yeast None (NONE SEEN) Urinalysis Comment None Urine Culture Reflexed Indicated Hemoglobin A1c 9.9% (4.8-5.6) Lipase 26U/L (13-60) Phosphorus Level 4.4mg/dL (2.5-4.9) Magnesium Level 2.2mg/dL (1.6-2.6) Lactic Acid Level 1.1mmol/L (0.4-2.0) Test 02/06/17 06:00 02/07/17 06:13 02/08/17 05:51 White Blood Count 5.7th/mm3 (3.8-10.1) Red Blood Count 3.58mil/mm3 (3.90-5.20) Hemoglobin 11.3g/dL (12.0-15.6) Hematocrit 35.0% (35.0-46.0) Mean Corpuscular Volume 97.8fL (81-100) Mean Corpuscular Hemoglobin 31.6pg (27.0-35.0) Mean Corpuscular Hemoglobin Concent 32.3% (32.0-37.0) Red Cell Distribution Width 14.5% (12.3-15.4) Platelet Count 143bil/L (150-400) Neutrophils (%) (Auto) 71.4% (40-74) Lymphocytes (%) (Auto) 13.5% (14-46) Monocytes (%) (Auto) 13.1% (4-12) Eosinophils (%) (Auto) 1.2% (0-5) Basophils (%) (Auto) 0.5% (0-3) Procalcitonin 0.59ng/mL (0.00-0.08) Sodium Level 131mEq/L (134-144) Potassium Level 4.7mEq/L (3.5-5.2) Chloride Level 91mEq/L (97-108) Carbon Dioxide Level 22mmol/L (18-29) Blood Urea Nitrogen 46mg/dL (8-27) Creatinine 5.70mg/dL (0.57-1.00) Estimat Glomerular Filtration Rate 11mL/min (>59) Glucose Level 162mg/dL (60-99) Calcium Level 8.8mg/dL (8.5-10.1) Total Bilirubin 0.4mg/dL (0.0-1.2) Aspartate Amino Transf (AST/SGOT) 25U/L (0-50) Alanine Aminotransferase (ALT/SGPT) 6U/L (0-32) Alkaline Phosphatase 123U/L (25-165) Total Protein 6.4g/dL (6.4-8.4) Albumin 3.1g/dL (3.4-5.0) Prealbumin 11mg/dL (20-40) Prothrombin Time 32.7sec (8.1-12.5) Prothromb Time International Ratio 2.99ratio Discharge Medications Discharge Medications Carvedilol (Carvedilol) 3.125 Mg Tablet 3.125 MG PO QPM (Reported) Docusate Sodium (Colace) 100 Mg Capsule 200 MG PO BID (Reported) Ertapenem Sodium (Invanz) 1,000 Mg/10 Ml Vial 500 MG IV DAILY Prescribed by: CATRACHO MIRANDA MD Furosemide (Lasix) 80 Mg Tablet 80 MG PO BID nonHD days (Reported) Furosemide (Furosemide) 80 Mg Tab 160 MG PO Qevening HD days (Reported) Hydrocodone-Acetaminophen 5-325 mg (Hydrocodone-Acetaminophen 5-325 mg) 1 Each Tablet 2 TABLET PO TID Prescribed by: CATRACHO MIRANDA MD Lisinopril (Lisinopril) 5 Mg Tablet 5 MG PO DAILY (Reported) Omeprazole (Omeprazole) 20 Mg Capsule.dr 20 MG PO DAILY (Reported) Sevelamer Carbonate (Renvela) 800 Mg Tablet 800 MG PO BID (Reported) Vit B Cmplx 3/FA/Vit C/Biotin (Nephro-Michael Rx) 1 Each Tablet 1 TABLET PO DAILY ( Reported) Warfarin Sodium (Warfarin Sodium) 5 Mg Tablet 6 MG PO DAILY (Reported) As needed Gabapentin (Gabapentin) 100 Mg Capsule 100-200 MG PO HS PRN PRN For Sleep ( Reported) Ondansetron (Ondansetron) 4 Mg Tablet 4-8 MG PO Q6H PRN PRN For Nausea (Reported ) Followup Plan Disposition: SNF Discharge Diet: Heart Healthy, Diabetic, Renal Diet Discharge Activity: Other (per physical therapy) Patient Instructions 1. Followup with primary care provider in 5-7 days 2. Followup with dialysis as previously planned. Follow-up Provider: Kemar Jo MD Provider: Sami Dee MD Time spent 30 min copies to: Sami Dee MD; Kemar Jo MD, Masoud Feb 08, 2017 18:25
== END 2017-02-08 11:38 | DRG 690 ==
LOC: SED 09:08 → MPC 12:08
PROVIDERS: ADMIT Neuromusculoskeletal Medicine & OMM; ATTEND Internal Medicine
PROC: 5A1D60Z (ICD-10-PCS; principal; 2017-02-03)
DX: N10 Acute pyelonephritis (principal); E87.2 Acidosis; I12.0 Hypertensive chronic kidney disease with stage 5 chronic kidney disease or end stage renal disease; N18.6 End stage renal disease; Z99.2 Dependence on renal dialysis; N13.30 Unspecified hydronephrosis; Z79.01 Long term (current) use of anticoagulants; Z87.891 Personal history of nicotine dependence; E11.65 Type 2 diabetes mellitus with hyperglycemia; Z51.5 Encounter for palliative care; Z16.12 Extended spectrum beta lactamase (ESBL) resistance; I48.2 Chronic atrial fibrillation

== ENCOUNTER 2017-03-15 23:46 | Emergency (ER) | payer MEDICARE, OTHER ==
[~2017-03-15 23:46] MED LIST changes: +INVANZ1I IV
== END 2017-03-16 00:01 | disposition admitted as inpatient to this hospital (09) ==
LOC: EDBD 23:46 → SED 23:46
DX: K52.9 Noninfective gastroenteritis and colitis, unspecified (principal); R53.81 Other malaise; I48.91 Unspecified atrial fibrillation; E11.22 Type 2 diabetes mellitus with diabetic chronic kidney disease; N18.6 End stage renal disease; Z99.2 Dependence on renal dialysis